=== PATIENT | female | born 1975 | race Caucasian/White ===

== ENCOUNTER 2017-06-25 12:04 | Observation (INO) | payer OTHER, SELFPAY ==
--- NOTE | 2017-06-19 11:44 | EKG12_ITS ---
Test Reason : PREOP Blood Pressure : / mmHG Vent. Rate : 074 BPM Atrial Rate : 074 BPM P-R Int : 154 ms QRS Dur : 088 ms QT Int : 396 ms P-R-T Axes : 039 -02 019 degrees QTc Int : 439 ms Normal sinus rhythm Normal ECG Confirmed by SHARI LEE, DAWN ([id number]), news editor GONZALO JOHN ([id number]) on 06/20/2017 2:02:20 PM Referred By: KD Confirmed By:DAWN MCCARTHY MD
[2017-06-19 12:42] LABS: Hematocrit 39.8 % (37-47); Hemoglobin 13.1 g/dl (12.0-15.0); Mean Corp Hgb Conc 32.9 g/gl (32-36); Mean Corpuscular Volume 97.1 fL (81-99); Mean Platelet Vol. 10.2 fl (6.2-12.0); Platelet Count 217 K/mm3 (150-450); RBC Distribution Width SD 45.1 fl (35.1-43.9); White Blood Count 6.3 K/mm3 (4.4-11.0)
[2017-06-19 12:44] LABS: Scan Indicated on CBC? Y/N NO
[2017-06-19 13:34] LABS: Anion Gap 11 (5-15); BUN 17 mg/dL (7-18); BUN/Creat Ratio 24.4 RATIO (10-20); Calcium,Total 8.9 mg/dL (8.5-10.1); Chloride 106 mmol/L (98-107); EST Glomerular Filtration Rate 99 mL/min (>60); Est Glom Filt Rate - Afr Amer 120 mL/min (>60); Glucose 85 mg/dL (74-106); Potassium 3.8 mmol/L (3.5-5.1); Sodium Level 142 mmol/L (136-145)
[2017-06-25] VITALS (12 sets, daily range): BP systolic 127–145; BP diastolic 68–90; PULSE 68–83; RESP 16–18; TEMP 36.3–37.1; O2SAT 96–100; BMI 46.9
--- NOTE | 2017-06-25 | THYROID_PTH ---
PATIENT: FELECIA WHITMAN LOC: MS2 U#:[id number] AGE/SX: 41/F [place] [facility] [place] RE[place]/25/[address]: Dr. Rajeev Hays MD : 1975 BED: 1 DIS: 06/26/2017 SPEC #: [id number] RECD: 06/25/17 13:44 STATUS: SHANNON JAIME #: [id number] CELY: 06/25/17 00:[address]: Rajeev Hays DEPT: SURGICAL PATHOLOGY RECD BY: Pardeep Portillo ENTERED: 06/25/17 13:44 SP TYPE: THYROID OTHR DR: No Primary Care Phys Tissues: Thyroid gland, NOS Procedures: Surgery Specimen Level V HEADER OPERATION: Thyroidectomy PRE-OP DIAGNOSIS: Multinodular goiter TISSUE SUBMITTED: Thyroid ? stitch in right lobe MICROSCOPIC DIAGNOSIS Thyroid, total thyroidectomy: Follicular adenoma, right lobe (6 cm in greatest dimension). 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 Multinodular goiter. Chronic lymphocytic thyroiditis. THYROID CANCER SUMMARY: Procedure ? total thyroidectomy Received - in formalin Specimen integrity ? disrupted, separate right lobe, left lobe and minute pieces of soft tissue. Specimen size ? right lobe 7 x 6.5 x 4 cm and left lobe 7 x 4.5 x 3 cm Specimen weight ? 103.6 gm Tumor focality ? unifocal Tumor laterality ? left lobe Tumor size ? 0.2 x 0.2 cm Histologic type ? papillary thyroid carcinoma. Variant - microcarcinoma Architecture - follicular Cytomorphology - classical Margins ? margins uninvolved by carcinoma. The tumor is 0.1 cm away from the closest posterior margin. Tumor capsule ? none identified (focal fibrosis is noted within the tumor) Tumor capsular invasion ? not applicable Lymph-Vascular invasion ? not identified Perineural invasion ? not identified Extrathyroidal extension ? not identified Regional lymph nodes ? no nodes submitted or found. Distant metastasis ? not applicable Additional pathologic findings ? follicular adenoma. - Chronic lymphocytic thyroiditis. - Multinodular goiter. Ancillary studies ? See [id number] PATHOLOGIC STAGE: pT1 pNx Mx The above summary is in compliance with [employer] (CAP) Cancer Protocols Checklist and [place] [employer] Committee on Cancer (AJCC), Staging Manual, 8th Ed. SJ:cecille 06/30/17 COMMENT Please make reference to previous specimen ([id number]) thyroid, right, fine needle aspiration with diagnosis of follicular lesion, favor cystic colloid nodule and thyroid, left, fine needle aspiration with diagnosis of follicular lesion, favor colloid nodule and ([id number]) FNA, right thyroid nodule with diagnosis of consistent with adenomatoid colloid nodule. Immunohistochemistry ([id number]) supports the above diagnosis. Case has been reviewed in consultation with Dr. Queen who concurs with the above diagnosis. IDC:[email or web address] MICROSCOPIC DESCRIPTION Slides are reviewed. GROSS DESCRIPTION Received in fixative is one container labeled with the patient's name and designated thyroid. The specimen consists of a total thyroidectomy specimen consisting of separate right lobe identified by a suture, separate left lobe and detached pieces of soft tissue. The entire specimen weighs 103.6 gm. The right lobe measures 7 x 6.5 x 4 cm and the left lobe measures 7 x 4.5 x 3 cm. Also received are a few smaller pieces of soft tissue measuring in aggregate 2.5 x 2 x 0.3 cm. No external parathyroid tissue is identified. Both lobes are markedly distorted. The external surface is inked as follows: right lobe anterior surface ? blue, posterior surface ? black, left lobe anterior surface ? green and posterior surface ? black. Sections of the right lobe reveal a large cam solid nodule occupying 90% of the lobe measuring 6 x 5 x 4 cm. A focal area of hemorrhage is also noted. Sections of the left lobe do not reveal any well defined mass lesion. A Class Lineman sections are submitted in 12 cassettes as follows: 1 ? detached smaller fragments of tissue, entirely submitted, 2-7 ? right lobe, 8-12 ? left lobe. / SJ:rg 06/26/17 More sections are submitted as follows: 13-16 ? left lobe, 17-22 ? right lobe nodule with surrounding capsular tissue. / SJ:cecille 06/27/17 TC:0 CPT: 28812
--- NOTE | 2017-06-25 | IMM_PTH ---
PATIENT: FELECIA WHITMAN LOC: MS2 U#:[id number] AGE/SX: 41/F [place] [facility] [id number] RE06/25/[address]: Dr. Rajeev Hays MD : 1975 BED: 1 DIS: 06/26/2017 SPEC #: [id number] RECD: 06/30/17 11:49 STATUS: SHANNON REQ #: [id number] CELY: 06/25/17 00:[address]: Rajeev Hays DEPT: IMMUNOHISTOCHEMISTRY RECD BY: Mirtha Salazar ENTERED: 06/30/17 11:51 SP TYPE: IMMUNO OTHR DR: No Primary Care Phys Tissues: Thyroid gland, NOS Procedures: CK19 (initial) CD56 (add) CK19 (add) GAL-3 (add) HBME (add) TTF1 (add) PHYSICIAN & INSTITUTION [place] [id number] SPECIMEN INFORMATION: Tissue Source: Thyroid Clinical Info: Multinodular goiter Specimen Number: [id number] block 4 & 9 CPT code: 62577, 00123 x9 METHODOLOGY: Deparaffinized sections of prefer/formalin-fixed tissue or PAP/DQ stained slides are incubated with monoclonal/polyclonal antibodies/oligonucleotide probes. Localization is made via biotin free immunoperoxidase method. Appropriate controls are performed and reacted as expected. Results on target cell population are indicated in the following table: RESULTS: ANTIBODY / CLONE RESULT Block 4 CK19 (A53-B/A2.26) negative HBME1 (HBME-1) negative GAL3 (9C4) negative CD56 (123C3.D5) positive, focal TTF-1 (8G7G3/1) positive Block 9 CK19 (A53-B/A2.26) positive HBME1 (HBME-1) positive GAL3 (9C4) positive CD56 (123C3.D5) negative TTF-1 (8G7G3/1) positive These tests were developed and their performance characteristics determined by [facility]. They may not have been cleared or approved by the U.S. Food and Drug Administration. The FDA has determined that such clearance or approval is not necessary. INTERPRETATION: Thyroid, thyroidectomy: Follicular adenoma (block #4) Papillary thyroid microcarcinoma (block #9). SJ:cecille 07/01/17
[2017-06-25 06:05] LABS: Internal QC Validated? YES +Cl - CLEAR BKGD; Pregnancy, Urine Negative Negative
--- NOTE | 2017-06-25 07:24 | PCM.DC.GS ---
<Rajeev Hays - Last Filed: 06/25/17 07:24> Discharge Diet: Light diet - advance as tolerated - if you have questions about your diet instructions, please talk to you doctor. Discharge Activity: May Not Drive - for 1 week or while taking narcotic pain medicine., May Shower May shower in (days): 1 Lifting Restrictions: 10 pounds Call your doctor if your incision/area has: Continuous Slow Oozing, Sudden Increased Bleeding, Increased Pain/ Swelling, Increased Redness, Foul Smelling Discharge Call your doctor if you observe: Fever of 101 or Higher Suture Line Care: Avoid Pulling/Pushing, Avoid Pinching/Bending Additional Dressing/Incision Instructions:: You may apply a dressing to protect the incision from clothing rubbing, otherwise you may leave it open. Allergies/Adverse Reactions: Allergies No Known Allergies Allergy (Verified 06/18/17 13:16) Medications to take at Discharge Vits [Prenatabs FA ] 1 tab PO DAILY 10/18/15 Hydrocodone Bitart/Apap 5-325 [Mcdonough 5MG-325MG] 1 tablet PO Q6H PRN PRN 4 Days #10 tablet 06/25/17 Levothyroxine Sodium [Synthroid] 150 mcg PO DAILY #90 tab 06/25/17 The following prescriptions were given: Hydrocodone Bitart/Apap 5-325 [Mcdonough 5MG-325MG] 1 tablet PO Q6H PRN PRN 4 Days #10 tablet PRN Reason: Pain Levothyroxine Sodium [Synthroid] 150 mcg PO DAILY #90 tab Primary Care Physician: Care Physician,No Primary [Primary Care Provider] - Please Follow Up With: Rajeev Hays MD - [phone] When: Call to make an appointment to be seen in about 10 days. <Georgiana Pepper - Last Filed: 06/26/17 07:40> Additional Instructions: Your calcium level was 8.3 at discharge, which is slightly low. We will prescribe Rocaltrol BID, Citrical TID, and Vit D 5,000 U QD for 14 days. Our office will recheck a calcium level the day of your follow-up appointment. Proposed Discharge Date: 06/26/17
[2017-06-25] MEDS: Bupivacaine 0.25% 30 ML Vial (10:15)
--- NOTE | 2017-06-25 10:33 | PCM.OPRPT ---
Problem List (1) Multinodular goiter Status: Acute Report of Operation Date of Procedure: 06/25/17 Pre-Operative Diagnosis: Symptomatic multinodular goiter Post-Operative Diagnosis: Same Surgery/Procedure Performed:: Total thyroidectomy Description of Surgical Findings:: Timeout and informed consent was obtained. 41-year-old female was taken during room. She underwent general endotracheal intubation anesthesia. Shoulder roll was placed. She was supine on the table. The neck was sterilely prepped and draped. A transverse curvilinear suprasternal incision was created. Sharp dissection carried down through the substance tissue. The platysma was incised and platysmal flaps are raised. Strap muscles were incised vertically. Strap muscles needed to be transected horizontally allow for exposure to the very significant size the gland. Incision had to be lengthened slightly on the right. Sharp and blunt dissection was used to identify the gland was tediously dissected free the right lobe was addressed first the inferior thyroidal vessels identified secured with hemoclips and Harmonic scalpel. In the superior pole of the right lobe was identified the superior parathyroid on the right was felt to have been identified and preserved. The course of the recurrent ventral nerve was identified as the gland was rotated anteriorly. Dissection was then performed directly upon the posterior aspect of the gland. Large cystic area decompressed assisting with visualization. Dissection was performed to the ligament of Morales. This was dissected free from the trachea. Good release was felt to been achieved. Gland was then rotated off the anterior surface of the trachea. Harmonic Scalpel dissection was used with blunt dissection to accomplish this. It is of note that the right gland was markedly enlarged and this was a very tedious dissection. Now the left lobe was addressed. It was not nearly as large as the right. The inferior parathyroid was identified. The superior parathyroid was identified both were preserved. The course of the recurrent laryngeal nerve was easily identified. A superior and inferior poles were secured with harmonic scalpel hemoclips the gland was rotated anteriorly dissection performed directly upon the posterior aspect ligament of Morales was transected using harmonic scalpel and the gland was dissected off the anterior surface of the trachea. The neck was irrigated with saline. Final hemostasis on the right was achieved with interrupted 3-0 Vicryl. That all major structures were intact. Strap muscles were approximated horizontally with interrupted [id number] 3-0 Vicryl. Strap muscles were then approximated midline with simple sutures of 3-0 Vicryl. The proximal the platysma was approximated up to 3-0 Vicryl. Subcu tissues were approximated with interrupted 3-0 Vicryl and then the edges were finally approximated with interrupted 5-0 Vicryl subdermal stitches. The crystal-incisional areas anesthetized with 10 cc of 0.25% Marcaine. Dermabond was applied followed by Telfa and tape dressings. Sponge instrument and needle counts were reported to surgeon for correct. Specimens total thyroid. Drains none. Blood loss cc. Rajeev Hays M.D., F.A.C.S. Type of Anesthesia:: General Anesthesiologist: Shaw Benavides
--- NOTE | 2017-06-25 10:40 | OP.PCM_ITS ---
Problem List (1) Multinodular goiter Status: Acute Report of Operation Date of Procedure: 06/25/17 Pre-Operative Diagnosis: Symptomatic multinodular goiter Post-Operative Diagnosis: Same Surgery/Procedure Performed:: Total thyroidectomy Description of Surgical Findings:: Timeout and informed consent was obtained. 41-year-old female was taken during room. She underwent general endotracheal intubation anesthesia. Shoulder roll was placed. She was supine on the table. The neck was sterilely prepped and draped. A transverse curvilinear suprasternal incision was created. Sharp dissection carried down through the substance tissue. The platysma was incised and platysmal flaps are raised. Strap muscles were incised vertically. Strap muscles needed to be transected horizontally allow for exposure to the very significant size the gland. Incision had to be lengthened slightly on the right. Sharp and blunt dissection was used to identify the gland was tediously dissected free the right lobe was addressed first the inferior thyroidal vessels identified secured with hemoclips and Harmonic scalpel. In the superior pole of the right lobe was identified the superior parathyroid on the right was felt to have been identified and preserved. The course of the recurrent ventral nerve was identified as the gland was rotated anteriorly. Dissection was then performed directly upon the posterior aspect of the gland. Large cystic area decompressed assisting with visualization. Dissection was performed to the ligament of Morales. This was dissected free from the trachea. Good release was felt to been achieved. Gland was then rotated off the anterior surface of the trachea. Harmonic Scalpel dissection was used with blunt dissection to accomplish this. It is of note that the right gland was markedly enlarged and this was a very tedious dissection. Now the left lobe was addressed. It was not nearly as large as the right. The inferior parathyroid was identified. The superior parathyroid was identified both were preserved. The course of the recurrent laryngeal nerve was easily identified. A superior and inferior poles were secured with harmonic scalpel hemoclips the gland was rotated anteriorly dissection performed directly upon the posterior aspect ligament of Morales was transected using harmonic scalpel and the gland was dissected off the anterior surface of the trachea. The neck was irrigated with saline. Final hemostasis on the right was achieved with interrupted 3-0 Vicryl. That all major structures were intact. Strap muscles were approximated horizontally with interrupted [id number] 3-0 Vicryl. Strap muscles were then approximated midline with simple sutures of 3- 0 Vicryl. The proximal the platysma was approximated up to 3-0 Vicryl. Subcu tissues were approximated with interrupted 3-0 Vicryl and then the edges were finally approximated with interrupted 5-0 Vicryl subdermal stitches. The crystal- incisional areas anesthetized with 10 cc of 0.25% Marcaine. Dermabond was applied followed by Telfa and tape dressings. Sponge instrument and needle counts were reported to surgeon for correct. Specimens total thyroid. Drains none. Blood loss cc. Rajeev Hays M.D., F.A.C.S. Type of Anesthesia:: General Anesthesiologist: Shaw Benavides
[2017-06-25] MEDS: Lactated Ringers 1,000 ML 30 ML IV (12:00)
[2017-06-25] MEDS: Calcium Carbonate 500 MG Tablet 1000 MG PO ×2 (13:11→18:08)
[2017-06-25] MEDS: Ondansetron 4 MG/2 ML Vial IV (14:23)
[2017-06-25] MEDS: 0.9% NaCl Peripheral Flush Adult/Peds IV (14:24)
[2017-06-25] MEDS: Acetaminophen/Codeine #3 Tablet PO ×2 (14:25→20:52)
[2017-06-25 17:09] LABS: Calcium,Total 8.5 mg/dL (8.5-10.1)
--- NOTE | 2017-06-25 17:34 | PCM.PN.SRG ---
Patient Problems: Active and Suspected Problems (Last Reviewed 06/03/17 @ 13:43 by Jessica Neal) Multinodular goiter (Acute) Subjective: Pt notes sore posterior neck - Physical Exam HEENT: - - supple, no anterior swelling, min posterior tenderness, clean incision Vital Signs Temp Pulse Resp BP Pulse Ox 98.2 F 70 18 134/70 H 98 06/25/17 16:35 06/25/17 16:35 06/25/17 16:35 06/25/17 16:35 06/25/17 16:35 Oxygen Flow Rate 2 Oxygen Delivery Method Room Air Weight: 256 lb 6.362 oz Body Mass Index (BMI) 46.9 Intake and Output for Last 24 Hours 06/23/17 06/24/17 06/25/17 23:59 23:59 23:59 Intake Total 1000 / 1000 Balance 1000 / 1000 Laboratory Tests Past 24 Hrs 06/25/17 06/25/17 05:50 16:14 Calcium 8.5 Urine Test Negative Assessment/Plan Active and Suspected Problems (Last Reviewed 06/03/17 @ 13:43 by Jessica Neal) Multinodular goiter (Acute) Good progress Ca 8.5 Continue care Will give rocaltrol tonight
[2017-06-25] MEDS: Calcitriol 0.25 MCG Capsule PO (18:08)
[2017-06-26 03:34] VITALS: BP 134/71; PULSE 67; RESP 18; TEMP 36.9; O2SAT 99
[2017-06-26] MEDS: Acetaminophen/Codeine #3 Tablet PO (05:01)
[2017-06-26] MEDS: Levothyroxine 150 MCG Tablet PO (05:02)
--- NOTE | 2017-06-26 06:50 | PN.SURG_ITS ---
Patient Problems: Active and Suspected Problems (Last Reviewed 06/03/17 @ 13:43 by Jessica Neal) Multinodular goiter (Acute) Subjective: Patient evaluated this morning resting comfortably in bed. She denies nausea, vomiting, fever. She notes posterior neck discomfort. She denies incisional discomfort. - Physical Exam General: Alert, Oriented x3, Cooperative Neck: Supple, No JVD, Negative Carotid Bruits, - - Anterior neck incision- c/d/ i. No erythema or infection noted. No swelling noted Vital Signs Temp Pulse Resp BP Pulse Ox 98.5 F 67 18 134/71 H 99 06/26/17 03:34 06/26/17 03:34 06/26/17 03:34 06/26/17 03:34 06/26/17 03:34 Oxygen Flow Rate 2 Oxygen Delivery Method Room Air Weight: 256 lb 6.362 oz Body Mass Index (BMI) 46.9 Intake and Output for Last 24 Hours 06/24/17 06/25/17 06/26/17 23:59 23:59 23:59 Intake Total 1979 / 1979 1209 / 1209 Output Total 800 / 800 1250 / 1250 Balance 1180 / 1180 -41 / -41 Laboratory Tests Past 24 Hrs 06/25/17 06/26/17 16:14 06:20 Calcium 8.5 Pending Assessment/Plan Active and Suspected Problems (Last Reviewed 06/03/17 @ 13:43 by Jessica Neal) Multinodular goiter (Acute) I am following this patient in conjunction with Dr. Hays. S/p Total thyroidectomy Calcium level pending Ready for discharge today
[2017-06-26 07:06] LABS: Calcium,Total 8.3 mg/dL (8.5-10.1)
[2017-06-26] MEDS: Calcium Carbonate 500 MG Tablet 1000 MG PO (07:51)
[2017-06-26] MEDS: Calcitriol 0.25 MCG Capsule PO (10:19)
[2017-06-26 10:27] VITALS: BP 124/67; PULSE 74; RESP 18; TEMP 36.9; O2SAT 98
== END 2017-06-26 10:21 | disposition home or self-care (01) ==
LOC: SDC 12:50
PROVIDERS: Anesthesiology; Admitting Provider Surgery; Visit Provider Surgery
PROC: (CPT 60240; principal; 2017-06-25 07:00)
DX: D34 Benign neoplasm of thyroid gland (principal); E06.3 Autoimmune thyroiditis; E04.2 Nontoxic multinodular goiter
CPT/HCPCS: 60240; 36415; 80048; 81025; 82310; 85027; 88307; 88341; 88342; 93005; 96374; 99218; J7120; A4216; G0378; G0379; J2405

== ENCOUNTER → 2017-07-07 10:49 | Outpatient (CLI) | payer OTHER, SELFPAY ==
[2017-07-07 12:25] LABS: Calcium,Total 9.8 mg/dL (8.5-10.1)
== END ==
PROVIDERS: Visit Provider Physician Assistant
DX: E83.51 Hypocalcemia (principal)
CPT/HCPCS: 36415; 82310

== ENCOUNTER → 2017-09-04 12:28 | Outpatient (CLI) | payer OTHER, SELFPAY ==
[2017-09-04 13:03] LABS: Free T3 2.3 pg/mL (2.18-3.98)
[2017-09-14 09:24] LABS: Anti-Thyroglobulin AB 1.7 IU/mL (0.0-0.9); Thyroglobulin RIA < 2.0 ng/mL (.); Thyroid Peroxidase AB 60 IU/mL (0-34)
== END ==
PROVIDERS: Visit Provider Internal Medicine Endocrinology, Diabetes & Metabolism
DX: C73 Malignant neoplasm of thyroid gland (principal); E89.0 Postprocedural hypothyroidism
CPT/HCPCS: 84432; 84481; 86376; 86800

== ENCOUNTER → 2018-06-04 12:09 | Outpatient (CLI) | payer OTHER, SELFPAY ==
[2018-06-05 14:07] LABS: Thyroid Peroxidase AB 19 IU/mL (0-34)
[2018-06-05 14:35] LABS: Thyroglobulin Antibody 1.2 IU/mL (0.0-0.9)
[2018-06-12 11:14] LABS: Thyroglobulin RIA < 2.0 ng/mL (.); Thyroid Peroxidase AB 23 IU/mL (0-34)
== END ==
PROVIDERS: Visit Provider Internal Medicine Endocrinology, Diabetes & Metabolism
DX: E03.9 Hypothyroidism, unspecified (principal)
CPT/HCPCS: 84432; 86376; 86800

== ENCOUNTER → 2018-07-20 12:56 | Outpatient (CLI) | payer OTHER, SELFPAY ==
--- NOTE | 2018-07-20 12:59 | BI_ITS ---
MAMMOGRAPHY - BILATERAL SCREENING REASON FOR EXAM: Female, 43 years old. Routine annual screening examination. PERTINENT HISTORY: Aunt with breast cancer. Remote history of right breast discharge and resection of the right ducts. TECHNIQUE: Digital bilateral breast eddi (3D mammographic acquisition) in the CC and MLO projections. 2-D mediolateral oblique (MLO) and craniocaudad (CC) views of both breasts were obtained. CAD: Full Field Digital Mammography with Computer Added Detection was performed. COMPARISON: No comparison mammograms available at this time. If any prior films become available, an addendum to this report can be generated. FINDINGS: Breast Composition: There are scattered areas of fibroglandular density. There are no dominant masses or suspicious calcifications. No other significant abnormalities are identified. BI/SCREEN MAMM (CAD) W/EDDI BILAT IMPRESSION: Negative screening mammogram. Yearly followup mammogram recommended. (A) ASSESSMENT CATEGORY: BIRADS Category 1: Negative. A letter regarding these results will be sent to the patient by the facility within 30 days. Approximately 10% of breast cancers are not detected by mammography. A normal mammogram should not delay biopsy of a clinically suspicious abnormality. [id number] Electronically Signed: Kaiser Valiente, at 15:49 EDT , Service support ,
== END ==
PROVIDERS: Visit Provider Obstetrics & Gynecology
DX: Z12.31 Encounter for screening mammogram for malignant neoplasm of breast (principal)
CPT/HCPCS: 77063; 77067

== ENCOUNTER → 2019-04-30 10:42 | Outpatient (CLI) | payer OTHER, SELFPAY ==
[2018-07-15 11:44] VITALS: BMI 45.7
[2019-05-03 15:07] LABS: Thyroglobulin Antibody 1.1 IU/mL (0.0-0.9); Thyroid Peroxidase AB 18 IU/mL (0-34)
== END ==
PROVIDERS: Referring Provider Internal Medicine Endocrinology, Diabetes & Metabolism; Visit Provider Internal Medicine Endocrinology, Diabetes & Metabolism
DX: C73 Malignant neoplasm of thyroid gland (principal)
CPT/HCPCS: 36415; 86376; 86800

== ENCOUNTER → 2020-01-12 16:25 | Outpatient (CLI) | payer OTHER, SELFPAY ==
[2020-01-12 08:59] VITALS: BMI 45.7
[2020-01-17 12:25] LABS: HPV APTIMA, High Risk Negative (Negative)
== END ==
PROVIDERS: Referring Provider Nurse Practitioner Women's Health; Visit Provider Nurse Practitioner Women's Health
DX: Z12.4 Encounter for screening for malignant neoplasm of cervix (principal)
CPT/HCPCS: 87624; 88175; G0145

== ENCOUNTER 2023-07-17 07:23 | Inpatient (IN) | payer OTHER, SELFPAY ==
[2023-07-17 07:23] VITALS: BP 150/88; PULSE 107; RESP 18; TEMP 36.8; O2SAT 96; BMI 52.4
--- NOTE | 2023-07-17 07:50 | US_ITS ---
HISTORY: RUQ pain. TECHNIQUE: Ortega scale and color doppler imaging was performed of the right upper quadrant. 92 images. COMPARISON: None. FINDINGS: LIVER: 16.1 cm in length. Heterogeneous echotexture without focal lesion demonstrated. No intrahepatic ductal dilatation. MAIN PORTAL VEIN: Patent with flow in appropriate direction. COMMON BILE DUCT: 5 mm in diameter. GALLBLADDER: Biliary sludge with a large impacted gallstone in the neck. 9 mm wall thickness with a distended gallbladder. No pericholecystic fluid. Sonographic العراق[place] sign negative. PANCREAS: Not well visualized due to overlying bowel gas. RIGHT KIDNEY: 11.5 cm in length with a cortical thickness of 1.2 cm. No hydronephrosis or gross renal mass demonstrated. US/Gallbladder IMPRESSION: Cholelithiasis and biliary sludge with a large impacted gallstone in the gallbladder neck, moderate gallbladder wall thickening, and gallbladder distention concerning for acute cholecystitis. Heterogeneous liver from hepatic steatosis or other hepatocellular disease. Electronically Signed: Adina Bui MD at 9:23 EST ,
--- NOTE | 2023-07-17 07:50 | EDS_ITS ---
HPI HPI - GI History of Present Illness Chief Complaint: Abd Pain Narrative Narrative: 48-year-old female presenting with right upper quadrant pain. She states that yesterday during lunchtime she started to have epigastric pain which radiates down to the right upper quadrant. She states she had a salad with pepperoni, ham, ranch dressing, cheese. She states that she believes it started hurting during lunch. Patient had constant pain overnight and started to radiate to the right upper quadrant. She states it still painful especially when she moves or take a deep breath. Patient has not vomited. No diarrhea or constipation. No abdominal surgeries. Patient has not eaten anything since yesterday at lunch. Patient states today before bed meatloaf and salad with no symptoms. Patient states he has had the symptoms in the past but it was short-lived. They never radiated to the right upper quadrant before. Patient has been able to tolerate p.o. fluids overnight. PFSH [facility] Medical History Cancer Multinodular goiter Obesity Polycystic disease, ovaries Postoperative hypothyroidism Thyroid cancer Thyroid cancer Home Medications cholecalciferol (vitamin D3) 125 mcg (5,000 unit) capsule 125 mcg PO DAILY 08/05/22 [History Last Taken Unknown] levothyroxine 150 mcg tablet 150 mcg PO .6 days q week #90 tabs 08/05/22 [Rx Last Taken Unknown] multivitamin (Daily Multi-Vitamin tablet) 1 tab PO DAILY 08/05/22 [History Last Taken Unknown] Allergy/AdvReac Type Severity Reaction Status Date / Time amoxicillin [From Augmentin] Allergy Mild Rash Verified 08/05/22 13:38 clavulanic acid Allergy Mild Rash Verified 08/05/22 13:38 [From Augmentin] Family History Unknown Diabetes Grandmother Diabetes Aunt Breast cancer Father CAD (coronary artery disease) Thyroid disorder Other Alcohol abuse Cancer Surgical History duct removal from right breast History of colposcopy S/P thyroidectomy Social History Smoking Status: Never smoker alcohol intake: current alcohol intake frequency: a few times a month substance use type: does not use caffeine: Yes what type of physical activity do you participate in: none seatbelt use: always do you feel safe at home: Yes additional social history: DAVID - deana MULLER ROS ED Constitutional Constitutional ED: Denies chills, fever(s) or sweats Eyes Eyes: Denies blurry vision or change in vision ENT ENT ED: Denies ear pain or sore throat Cardiovascular Cardiovascular: Denies chest pain, palpitations or racing heartbeat Respiratory/Chest Respiratory/Chest: Denies cough, dyspnea or sputum Gastrointestinal Gastrointestinal: Reports abdominal pain; Denies constipation, diarrhea, nausea or vomiting Genitourinary Genitourinary ED: Denies dysuria, hematuria or urinary frequency Musculoskeletal Musculoskeletal: Denies arthralgias, myalgias or neck pain Integumentary Denies abscess, Abrasions or rash Neurologic Neurologic: Denies headache(s), paresthesias or weakness Psychiatric Psychiatric: Denies anxiety, depression, suicidal ideation or suicidal thoughts Endocrine Endocrinology: Denies polydipsia or polyuria EXAM Physical Exam Const Vital Signs: 07/17/23 07:23 Temperature 98.3 F Temperature Source Temporal Pulse Rate 107 H Respiratory Rate 18 Blood Pressure 150/88 H Blood Pressure Mean 108 Pulse Ox 96 Oxygen Delivery Method Room Air Positive well nourished General Appearance ED: NAD; Negative for pallor HEENT Reports moist mucous membranes normocephalic and atraumatic Eyes PERRL General Eye ED: Negative for scleral icterus Resp normal respiratory effort Cardio regular rate and regular rhythm GI Palpation: tender RUQ and العراقي's sign Extremity full ROM Neuro CN's II-XII intact bilaterally and moves all extremities Sensorium / Orientation: alert Motor Exam: strength 5/5 throughout Psych mental status grossly normal and thought process normal Skin no wounds General Skin Exam: Negative for jaundice or pallor MDM MDM MDM Narrative Medical decision making narrative: Patient presenting with abdominal pain. Patient presenting with right flank pain. Differential includes colitis, diverticulitis, gastritis, pancreatitis, acute cholecystitis, constipation, appendicitis, UTI, pyelonephritis, calculi, ureteral calculi, obstruction, malignancy, dehydration, electrolyte abnormalities, . CBC will be obtained to assess white blood cell count, hemoglobin, platelets. BMP to assess renal function, electrolytes. LFTs to assess liver enzymes. Lipase to assess for pancreatitis. Urinalysis to assess for UTI. Right upper quadrant ultrasound will be obtained. Patient medicated with morphine, Zofran. CBC shows leukocytosis of 15.2. Hemoglobin stable at 12.9. Platelets are normal at 203. Renal function and electrolytes unremarkable. Total bilirubin 1.5, direct bilirubin 0.55 AST, ALT, alk phos all within normal limits. Lipase negative. Serum hCG negative. Pulmonary ultrasound was obtained and shows concern for acute cholecystitis. Discussed with Dr. Vaughn who will admit the patient. Patient penicillin allergic and he requested clindamycin. Patient will be admitted in stable condition. Impression: 1. Leukocytosis 2. Acute cholecystitis Lab Data Labs: Laboratory Results - last 24 hr 07/17/23 07:50 WBC 15.2 H RBC 4.09 L Hgb 12.9 Hct 38.4 MCV 93.9 MCH 31.5 MCHC 33.6 RDW Std Deviation 45.1 H RDW Coeff of Rula 13.1 Plt Count 203 MPV 10.3 Immature Gran % (Auto) 0.500 Neut % (Auto) 86.9 H Lymph % (Auto) 5.1 L Randolph % (Auto) 7.2 Eos % (Auto) 0.2 Baso % (Auto) 0.1 Absolute Neuts (auto) 13.2 H Absolute Lymphs (auto) 0.77 L Nucleated RBC % 0 Sodium 141 Potassium 3.5 Chloride 107 Carbon Dioxide 24.0 Anion Gap 10 BUN 10 Creatinine 0.75 Estim Creat Clear Calc 121.42 Est GFR (MDRD) Af Amer 108 Est GFR (MDRD) Non-Af 89 BUN/Creatinine Ratio 13.4 Glucose 120 H Calcium 8.9 Total Bilirubin 1.50 H Direct Bilirubin 0.55 H AST 19 ALT 26 Alkaline Phosphatase 80 Total Protein 7.4 Albumin 3.4 Globulin 4.0 Lipase 12 L Serum , Qual NEGATIVE Radiography Diagnostic Testing: Clinical Impression(s) from Imaging Studies Gallbladder Ultrasound 07/17/23 07:50 IMPRESSION: Cholelithiasis and biliary sludge with a large impacted gallstone in the gallbladder neck, moderate gallbladder wall thickening, and gallbladder distention concerning for acute cholecystitis. Heterogeneous liver from hepatic steatosis or other hepatocellular disease. Electronically Signed: Adina Bui MD at 9:23 EST , Discharge Plan Triage Chief Complaint: Abd Pain ED Provider: Ron Arredondo Dx/Rx/DC Orders Prescriptions: No Action multivitamin [Daily Multi-Vitamin] Tablet 1 tab PO DAILY cholecalciferol (vitamin D3) 125 mcg (5,000 unit) capsule 125 mcg PO DAILY levothyroxine 150 mcg tablet 150 mcg PO .6 days q week Qty: 90 3RF Primary Care Provider: Care Physician,No Primary Referrals: Care Physician,No Primary [Primary Care Provider] -
[2023-07-17] MEDS: Ondansetron 4 MG/2 ML Vial IV ×2 (07:57→13:21)
[2023-07-17] MEDS: Morphine 4 MG/ML Syringe IV (07:58)
[2023-07-17 08:07] LABS: Absolute Lymphocyte Count 0.77 X10^3/uL (0.83-4.51); Absolute Neutrophil Count 13.2 X10^3/uL (2.0-7.7); Basophil# 0.02 X10^3/uL; Basophil% 0.1 % (0-1); Eosinophil# 0.03 X10^3/uL; Eosinophils% 0.2 % (0-5); Hematocrit 38.4 % (37-47); Hemoglobin 12.9 g/dL (12.0-15.0); Lymphocyte # 0.77 X10^3/ul (0.83-4.51); Lymphocyte % 5.1 % (19-41); Mean Corp Hgb Conc 33.6 g/dL (32-36); Mean Corpuscular Hgb 31.5 pg (27.0-32.0); Mean Corpuscular Volume 93.9 fL (81-99); Mean Platelet Vol. 10.3 fl (6.2-12.0); Monocyte% 7.2 % (0-10); NRBC Flagged by Analyzer 0 % (0-5); Neutrophil # 13.22 X10^3/uL (2.7-7.7); Neutrophil % 86.9 % (47-70); Platelet Count 203 K/mm3 (150-450); RBC Distribution Width CV 13.1 % (11.6-14.6); RBC Distribution Width SD 45.1 fl (35.1-43.9); Red Blood Count 4.09 M/mm3 (4.2-5.4); White Blood Count 15.2 K/mm3 (4.4-11.0)
[2023-07-17 08:18] LABS: Internal QC Validated? YES +Cl - CLEAR BKGD; Pregnancy, Serum, hCG Quali. NEGATIVE Negative; Record Kit Lot#, Serum Preg. HCG0000718086
--- OUTSIDE RECORDS SUMMARY | 2023-07-17 08:18 | XMS RPT_ITS | CCD ---
Author Name Unknown Address [address] [facility] [address] [place] [address] Organization [facility] Care Team Providers Care Customer Strategy Manager Name Role Phone Emelina Fleming MD Unavailable [phone] Olive GOODSON, Cathy Santos Unavailable RAMÍREZ Larios RN, Kandice Espinosa Unavailable Chepe Larios RN RN, Kandice Espinosa Unavailable Chepe Larios RN RN, Kandice Espinosa Unavailable Chepe Odom NP, Eva Flores Unavailable [phone] Judith Yuan LPN Unavailable Unavailable Catherine Peters Unavailable EMELINA FLEMING Unavailable Unavailable CHARLIE COMER Unavailable Unavailable ELEANOR TERAN (COMMERCIAL CREDIT HEAD) Unavailable Unavaearle Larios RN RN, Kandice A Unavailable Unavailarturo Larios RN RN, Kandice A Unavailable UnavailCatherine Ashford Unavailable Catherine Peters Unavailable Eva Odom NP Unavailable Judith Yuan LPN Unavailable Unavailable Emelina Fleming MD Unavailable [phone] RAMÍREZ Larios RN, Kandice Espinosa Unavailable Chepe cavanaugh Medications Completed/Discontinued Medications Medication Drug Class(es) Dates Sig (Normalized) Sig (Original) metroNIDAZOLE 500 mg oral tablet (17 sources) Nitroimidazole Antimicrobial Start: 02-24-2017 take 1 tablet by mouth twice daily FLAGYL 500 MG TABS One tablet by mouth twice daily METRONIDAZOLE [id number] Emelina Fleming MD Drug Treatment Unknown - unknown (5 sources) No information available. VIT-FE FUMARATE-FA (12 sources) Start: 12-06-2016 take 1 tablet by mouth once daily VITAMINS 28-0.8 MG TABS One tablet by mouth daily VIT-FE FUMARATE-FA [id number] Emelina Fleming MD Problems Active Problems Problem Classification Problem Date Documented Date Episodic/Chronic Other nutritional; endocrine; and metabolic disorders (20 sources) Body mass index (BMI) 45.0-49.9, adult; Translations: [Overweight] Onset: 08-28-2016 08-28-2016 Chronic Other nutritional; endocrine; and metabolic disorders (15 sources) Overweight; Translations: [Overweight] Onset: 08-28-2016 08-28-2016 Chronic Residual codes; unclassified (20 sources) 34 weeks gestation of ; Translations: [37 weeks gestation of ] Onset: 12-06-2016 02-07-2017 Thyroid disorders (20 sources) Hyperthyroidism; Translations: [Thyrotoxicosis, unspecified without thyrotoxic crisis or storm] Onset: 08-28-2016 08-28-2016 Chronic Unclassified (18 sources) 37 weeks gestation of ; Translations: [21 weeks gestation of ] Onset: 11-08-2016 02-21-2017 Unclassified (17 sources) Contraception care management; Translations: [Encounter for contraceptive management, unspecified] Onset: 02-21-2017 02-21-2017 Past or Other Problems Problem Classification Problem Date Documented Date Episodic/Chronic Contraceptive and procreative management (1 source) Encounter for contraceptive management, unspecified; Translations: [Encounter for contraceptive management, unspecified] Onset: 02-21-2017 02-21-2017 Episodic Immunizations and screening for infectious disease (20 sources) Carrier of Group B streptococcus; Translations: [Carrier of Group B streptococcus] Onset: 02-24-2017 Resolved: 03-28-2017 03-28-2017 Episodic Other complications of (20 sources) Rhesus isoimmunization with problem; Translations: [High risk ] Onset: 08-28-2016 12-06-2016 Episodic Other complications of (20 sources) High risk ; Translations: [Supervision of other high risk pregnancies, unspecified trimester] Onset: 08-28-2016 01-03-2017 Episodic Other and delivery including normal (20 sources) Gestation period, 30 weeks; Translations: [Gestation period, 25 weeks] Onset: 12-06-2016 01-08-2017 Episodic Other screening for suspected conditions (not mental disorders or infectious disease) (20 sources) Abnormal cervical Papanicolaou smear; Translations: [Unspecified abnormal cytological findings in specimens from cervix uteri] Onset: 12-06-2016 12-06-2016 Episodic Prolonged (7 sources) Post-term ; Translations: [Post-term ] Onset: 03-21-2017 03-21-2017 Episodic Thyroid disorders (20 sources) Disorder of thyroid gland; Translations: [Disorder of thyroid, unspecified] Onset: 11-21-2016 Resolved: 12-06-2016 11-21-2016 Episodic Results Test Name Value Interpretation Reference Range Facil ity Vital Signs Date Time Vital Sign Value Performing Clinician Facility 03-27-2017 08:30-0500 BMI (Body Mass Index) 49.1 kg/m2 Cathy Schaefer NP [facility] 03-27-2017 08:30-0500 BP Diastolic 80 mm[Hg] Cathy Schaefer NP [facility] 03-27-2017 08:30-0500 BP Systolic 126 mm[Hg] Cathy Schaefer NP [facility] 03-27-2017 08:30-0500 Weight 125.74 kg Cathy Schaefer NP [facility] 03-24-2017 13:18-0500 BMI (Body Mass Index) 48.92 kg/m2 Emelina Fleming MD [facility] 03-24-2017 13:18-0500 BP Diastolic 79 mm[Hg] Emelina Fleming MD [facility] 03-24-2017 13:18-0500 BP Systolic 119 mm[Hg] Emelina Fleming MD [facility] 03-24-2017 13:18-0500 Weight 125.28 kg Emelina Fleming MD [facility] 03-21-2017 14:36-0500 BMI (Body Mass Index) 49.06 kg/m2 Cathy Schaefer NP [facility] 03-21-2017 14:36-0500 BP Diastolic 73 mm[Hg] Cathy Schaefer NP [facility] 03-21-2017 14:36-0500 BP Systolic 113 mm[Hg] Cathy Schaefer NP [facility] 03-21-2017 14:36-0500 Weight 125.65 kg Cathy Schaefer [facility] 03-19-2017 08:06-0500 BMI (Body Mass Index) 40.24 kg/m2 Emelina Fleming MD [facility] [place] 03-19-2017 08:06-0500 BP Diastolic 79 mm[Hg] Emelina Fleming MD [facility] [place] 03-19-2017 08:06-0500 BP Systolic 124 mm[Hg] Emelina Fleming MD [facility] [place] 03-19-2017 08:06-0500 Respiratory Rate 16 /min Emelina Fleming MD [facility] [place] 03-19-2017 08:06-0500 Weight 103.06 kg Emelina Fleming MD [facility] [place] 03-14-2017 08:17-0400 BMI (Body Mass Index) 49.7 kg/m2 Emelina Fleming MD [facility] [place] 03-14-2017 08:17-0400 Body Temperature 98 [degF] Emelina Fleming MD [facility] [place] 03-14-2017 08:17-0400 BP Diastolic 77 mm[Hg] Emelina Fleming MD [facility] 03-14-2017 08:17-0400 BP Systolic 127 mm[Hg] Emelina Fleming MD [facility] [place] 03-14-2017 08:17-0400 Pulse (Heart Rate) 94 /min Emelina Fleming MD [facility] [place] 03-14-2017 08:17-0400 Respiratory Rate 16 /min Emelina Fleming MD [facility] [place] 03-14-2017 08:17-0400 Weight 127.28 kg Emelina Fleming MD [facility] 02-28-2017 08:11-0400 BMI (Body Mass Index) 48.89 kg/m2 Emelina Fleming MD [facility] [place] 02-28-2017 08:11-0400 Body Temperature 96.8 [degF] Emelina Fleming MD [facility] 02-28-2017 08:11-0400 BP Diastolic 76 mm[Hg] Emelina Fleming MD [facility] [place] 02-28-2017 08:11-0400 BP Systolic 119 mm[Hg] Emelina Fleming MD [facility] 02-28-2017 08:11-0400 Pulse (Heart Rate) 97 /min Emelina Fleming MD [facility] 02-28-2017 08:11-0400 Respiratory Rate 16 /min Emelina Fleming MD [facility] 02-28-2017 08:11-0400 Weight 125.19 kg Emelina Fleming MD [facility] 02-25-2017 07:43-0400 Height 160.02 cm Emelina Fleming MD [facility] 02-21-2017 08:19-0400 BMI (Body Mass Index) 48.64 kg/m2 Emelina Fleming MD [facility] 02-21-2017 08:19-0400 Body Temperature 97.3 [degF] Emelina Fleming MD [facility] 02-21-2017 08:19-0400 BP Diastolic 77 mm[Hg] Emelina Fleming MD [facility] 02-21-2017 08:19-0400 BP Systolic 117 mm[Hg] Emelina Fleming MD [facility] 02-21-2017 08:19-0400 Pulse (Heart Rate) 102 /min Emelina Fleming MD [facility] 02-21-2017 08:19-0400 Respiratory Rate 16 /min Emelina Fleming MD [facility] 02-21-2017 08:19-0400 Weight 124.56 kg Emelina Fleming MD [facility] 02-07-2017 05:14-0400 BMI (Body Mass Index) 49.28 kg/m2 Emelina Fleming MD [facility] 02-07-2017 05:14-0400 BP Diastolic 67 mm[Hg] Emelina Fleming MD [facility] 02-07-2017 05:14-0400 BP Systolic 122 mm[Hg] Emelina Fleming MD [facility] 02-07-2017 05:14-0400 Weight 126.19 kg Emelina Fleming MD [facility] 01-23-2017 08:42-0400 BMI (Body Mass Index) 48.99 kg/m2 Emelina Fleming MD [facility] [place] 01-23-2017 08:42-0400 Body Temperature 97.6 [degF] Emelina Fleming MD [facility] [place] 01-23-2017 08:42-0400 BP Diastolic 71 mm[Hg] Emelina Fleming MD [facility] [place] 01-23-2017 08:42-0400 BP Systolic 116 mm[Hg] Emelina Fleming MD [facility] 01-23-2017 08:42-0400 Pulse (Heart Rate) 94 /min Emelina Fleming MD [facility] [place] 01-23-2017 08:42-0400 Respiratory Rate 16 /min Emelina Fleming MD [facility] 01-23-2017 08:42-0400 Weight 125.47 kg Emeilna Fleming MD [facility] 01-09-2017 08:05-0400 BMI (Body Mass Index) 49.13 kg/m2 Cathy Schaefer NP [facility] 01-09-2017 08:05-0400 Body Temperature 97.8 [degF] Cathy Schaefer FILING MACHINE OPERATOR [facility] 01-09-2017 08:05-0400 BP Diastolic 73 mm[Hg] Cathy Schaefer FILING MACHINE OPERATOR [facility] 01-09-2017 08:05-0400 BP Systolic 115 mm[Hg] Cathy Schaefer FILING MACHINE OPERATOR [facility] 01-09-2017 08:05-0400 Pulse (Heart Rate) 93 /min Cathy Schaefer FILING MACHINE OPERATOR [facility] 01-09-2017 08:05-0400 Respiratory Rate 16 /min Cathy Schaefer FILING MACHINE OPERATOR [facility] 01-09-2017 08:05-0400 Weight 125.83 kg Cathy Schaefer NP [facility] 12-25-2016 07:42-0400 BMI (Body Mass Index) 48.92 kg/m2 Eva Odom NP [facility] Work Phone: 12-25-2016 07:42-0400 Body Temperature 98.2 [degF] Eva Odom NP [facility] Work Phone: 12-25-2016 07:42-0400 BP Diastolic 81 mm[Hg] Eva Odom FILING MACHINE OPERATOR [facility] Work Phone: 12-25-2016 07:42-0400 BP Systolic 132 mm[Hg] Eva Odom FILING MACHINE OPERATOR [facility] Work Phone: 12-25-2016 07:42-0400 Pulse (Heart Rate) 105 /min Eva Odom FILING MACHINE OPERATOR [facility] Work Phone: 12-25-2016 07:42-0400 Respiratory Rate 17 /min Eva Odom FILING MACHINE OPERATOR [facility] Work Phone: 12-25-2016 07:42-0400 Weight 125.28 kg Eva Odom FILING MACHINE OPERATOR [facility] Work Phone: 12-06-2016 09:36-0400 BMI (Body Mass Index) 49.2 kg/m2 Emelina Fleming MD [facility] 12-06-2016 09:36-0400 Body Temperature 99.2 [degF] Emelina Fleming MD [facility] 12-06-2016 09:36-0400 BP Diastolic 74 mm[Hg] Emelina Fleming MD [facility] 12-06-2016 09:36-0400 BP Systolic 108 mm[Hg] Emelina Fleming MD [facility] 12-06-2016 09:36-0400 Pulse (Heart Rate) 91 /min Emelina Fleming MD [facility] 12-06-2016 09:36-0400 Respiratory Rate 16 /min Emelina Fleming MD [facility] 12-06-2016 09:36-0400 Weight 126.01 kg Emelina Fleming MD [facility] 12-03-2016 07:47-0400 BMI (Body Mass Index) 49.1 kg/m2 Judith [facility] Work Phone: 12-03-2016 07:47-0400 Body Temperature 98.2 [degF] Judith [facility] Work Phone: 12-03-2016 07:47-0400 BP Diastolic 68 mm[Hg] Judith Kwabena DEL CASTILLO [facility] Work Phone: 12-03-2016 07:47-0400 BP Systolic 110 mm[Hg] Judith Kwabena [facility] Work Phone: 12-03-2016 07:47-0400 Height 160.02 cm Judith Kwabena DEL [facility] Work Phone: 12-03-2016 07:47-0400 Pulse (Heart Rate) 84 /min Judith Kwabena DEL [place] Work Phone: 12-03-2016 07:47-0400 Respiratory Rate 20 /min Judith Kwabena DEL [place] Work Phone: 12-03-2016 07:47-0400 Weight 125.74 kg Judith Kwabena DEL [facility] Work Phone: 08-28-2016 10:47-0400 BMI (Body Mass Index) 47.68 kg/m2 Eva Lei GOODSON [facility] Work Phone: 08-28-2016 10:47-0400 BP Diastolic 68 mm[Hg] Eva Shogustavo FILING MACHINE OPERATOR [facility] Work Phone: 08-28-2016 10:47-0400 BP Systolic 137 mm[Hg] Eva Shogustavo GOODSON [facility] Work Phone: 08-28-2016 10:47-0400 BSA (Body Surface Area) 2.2 m2 Eva Lei FILING MACHINE OPERATOR [facility] Work Phone: 08-28-2016 10:47-0400 Height 160.02 cm Eva Odom NP [facility] Work Phone: 08-28-2016 10:47-0400 Pulse (Heart Rate) 86 /min Eva Odom NP [facility] Work Phone: 08-28-2016 10:47-0400 Pulse Oximetry 96 % Eva Shook FILING MACHINE OPERATOR [facility] Work Phone: 08-28-2016 10:47-0972 Respiratory Rate 18 /min Eva Lei FILING MACHINE OPERATOR [facility] Work Phone: 08-28-2016 10:47-4122 Weight 122.11 kg Eva Sheikhgustavo FILING MACHINE OPERATOR [facility] Work Phone: Encounters Encounter Date Encounter Type Care Provider Facility Start: 11-19-2016 End: 11-21-2016 Ambulatory [facility]LIE COM[facility] Start: 11-08-2016 End: 06-16-2017 Ambulatory EMELINA FLEMING [facility] Procedures Date Procedure Procedure Detail Performing Clinician Start: 03-27-2017 End: 03-27-2017 nonstress test Cathy Schaefer FILING MACHINE OPERATOR Work Phone: Start: 03-27-2017 End: 03-27-2017 Routine OB Visit (Global) Cathy Casareztin gs FILING MACHINE OPERATOR Work Phone: Start: 03-27-2017 End: 03-27-2017 non-stress test Cathy Jaureguis N P Work Phone: Start: 03-27-2017 End: 03-27-2017 Routine OB Visit (Global) Cathy Casareztin gs FILING MACHINE OPERATOR Work Phone: Start: 03-24-2017 End: 03-25-2017 nonstress test Cathy Jaureguis FILING MACHINE OPERATOR Work Phone: Start: 03-24-2017 End: 03-25-2017 Routine OB Visit (Global) Cathy Casareztin gs FILING MACHINE OPERATOR Work Phone: Start: 03-24-2017 End: 03-25-2017 non-stress test Cathy Jaureguis N P Work Phone: Start: 03-24-2017 End: 03-25-2017 Routine OB Visit (Global) Cathy Casareztin gs FILING MACHINE OPERATOR Work Phone: Start: 03-21-2017 End: 03-21-2017 nonstress test Cathy Jaureguis FILING MACHINE OPERATOR Work Phone: Start: 03-21-2017 End: 03-21-2017 Routine OB Visit (Global) Cathy [facility] FILING MACHINE OPERATOR Work Phone: Start: 03-21-2017 End: 03-21-2017 non-stress test Cathy Schaefer N P Work Phone: Start: 03-21-2017 End: 03-21-2017 Routine OB Visit (Global) Cathy [facility] gs FILING MACHINE OPERATOR Work Phone: Start: 03-19-2017 End: 03-19-2017 Routine OB Visit (Global) Emelina loera MD Work Phone: Start: 03-19-2017 End: 03-19-2017 Routine OB Visit (Global) Emelina loera MD Work Phone: Start: 03-14-2017 End: 03-14-2017 Routine OB Visit (Global) Emelnia loera MD Work Phone: Start: 03-14-2017 End: 03-14-2017 Routine OB Visit (Global) Emelina loera MD Work Phone: Start: 03-06-2017 End: 03-06-2017 Routine OB Visit (Global) Emelina loera MD Work Phone: Start: 03-06-2017 End: 03-06-2017 Routine OB Visit (Global) Emelina loera MD Work Phone: Start: 02-28-2017 End: 02-28-2017 Routine OB Visit (Global) Emelina loera MD Work Phone: Start: 02-28-2017 End: 02-28-2017 Routine OB Visit (Global) Emelina loera MD Work Phone: Start: 02-21-2017 End: 03-28-2017 Bacteria identified in Genital specimen by Aerobe culture Emelina Fleming MD Work Phone: Start: 02-21-2017 End: 02-21-2017 Routine OB Visit (Global) Emelina loera MD Work Phone: Start: 02-21-2017 End: 03-28-2017 Bacteria genital culture Emelina sanchez MD Work Phone: Start: 02-21-2017 End: 02-21-2017 Routine OB Visit (Global) Emelina loera MD Work Phone: Start: 02-07-2017 End: 02-07-2017 Routine OB Visit (Global) Emelina loera MD Work Phone: Start: 02-07-2017 End: 02-07-2017 Routine OB Visit (Global) Emelina loera MD Work Phone: Start: 01-23-2017 End: 01-23-2017 Routine OB Visit (Global) Emelina loera MD Work Phone: Start: 01-23-2017 End: 03-28-2017 Us preg uterus real time f/u trnsabdl per fetus Emelina Fleming MD Work Phone: Start: 01-23-2017 End: 03-28-2017 Ob us, follow-up, per fetus Emelina hull MD Work Phone: Start: 01-23-2017 End: 01-23-2017 Routine OB Visit (Global) Emelina loera MD Work Phone: Start: 01-09-2017 End: 01-09-2017 Routine OB Visit (Global) Cathy young FILING MACHINE OPERATOR Work Phone: Start: 01-09-2017 End: 01-09-2017 Routine OB Visit (Global) Cathy young FILING MACHINE OPERATOR Work Phone: Start: 12-25-2016 End: 12-30-2016 *GESTGTT Gestational GRR 3Hr 100 gm Emelina Fleming MD Work Phone: Start: 12-25-2016 End: 12-25-2016 *RHOGAM Rhogam/RH Immune Globulin/Unit Emelina Fleming MD Work Phone: Start: 12-25-2016 End: 12-25-2016 Antepartum care only 7/> visits Emelina Fleming MD Work Phone: Start: 12-25-2016 End: 12-25-2016 Antibody screen Kandice Larios RN RN Start: 12-25-2016 End: 12-30-2016 *GESTGTT Gestational GRR 3Hr 100 gm Emelina Fleming MD Work Phone: Start: 12-25-2016 End: 12-25-2016 *RHOGAM Rhogam/RH Immune Globulin/Unit Emelina Fleming MD Work Phone: Start: 12-25-2016 End: 12-25-2016 Antepartum care only Emelina rubio MD Work Phone: Start: 12-06-2016 End: 12-25-2016 *CBC with Differential Emelina greene MD Work Phone: Start: 12-06-2016 End: 12-25-2016 *RHOGAM Rhogam/RH Immune Globulin/Unit Emelina Fleming MD Work Phone: Start: 12-06-2016 End: 12-25-2016 *TS Type and Screen Emelina Fleming MD Work Phone: Start: 12-06-2016 End: 12-25-2016 Glucose tolerance 4 hours panel - Serum or Plasma Emelina Fleming MD Work Phone: Start: 12-06-2016 End: 12-06-2016 Routine OB Visit (Global) Emelina loera MD Work Phone: Start: 12-06-2016 End: 12-25-2016 *CBC with Differential Emelina greene MD Work Phone: Start: 12-06-2016 End: 12-25-2016 *RHOGAM Rhogam/RH Immune Globulin/Unit Emelina Fleming MD Work Phone: Start: 12-06-2016 End: 12-25-2016 *TS Type and Screen Emelina Fleming MD Work Phone: Start: 12-06-2016 End: 12-25-2016 Glucose tolerance 4 hours panel - Serum or Plasma Emelina Fleming MD Work Phone: Start: 12-06-2016 End: 12-06-2016 Routine OB Visit (Global) Emelina loera MD Work Phone: Start: 11-21-2016 End: 12-25-2016 Thyrotropin [Units/volume] in Serum or Plasma Eva Odom FILING MACHINE OPERATOR Work Phone: Start: 11-21-2016 End: 12-25-2016 Thyroxine (T4) free [Mass/volume] in Serum or Plasma Eva Odom FILING MACHINE OPERATOR Work Phone: Start: 11-21-2016 End: 12-25-2016 Triiodothyronine (T3) Free [Mass/volume] in Serum or Plasma Eva Odom FILING MACHINE OPERATOR Work Phone: Start: 11-21-2016 End: 12-25-2016 Thyroid stimulating hormone (TSH) Eva Odom FILING MACHINE OPERATOR Work Phone: Start: 11-21-2016 End: 12-25-2016 Thyroxine (T4) free Eva Odom FILING MACHINE OPERATOR Work Phone: Start: 11-21-2016 End: 12-25-2016 Triiodothyronine (T3) free Eva pate FILING MACHINE OPERATOR Work Phone: Start: 08-28-2016 End: 11-13-2016 *MISC - Miscellaneous Lab Test #1 Eva Odom FILING MACHINE OPERATOR Work Phone: Start: 08-28-2016 End: 08-29-2016 Aspartate aminotransferase [Enzymatic activity/volume] in Serum or Plasma Eva Odom FILING MACHINE OPERATOR Work Phone: Start: 08-28-2016 End: 08-29-2016 CBC W Auto Differential panel - Blood Eva Odom FILING MACHINE OPERATOR Work Phone: Start: 08-28-2016 End: 05-30-2017 Thyrotropin [Units/volume] in Serum or Plasma Eva Odom FILING MACHINE OPERATOR Work Phone: Start: 08-28-2016 End: 11-13-2016 Thyroxine (T4) free [Mass/volume] in Serum or Plasma Eva Odom FILING MACHINE OPERATOR Work Phone: Start: 08-28-2016 End: 11-13-2016 Transferase alanine amino alt sgpt Eva Odom FILING MACHINE OPERATOR Work Phone: Start: 08-28-2016 End: 11-13-2016 Triiodothyronine (T3) Free [Mass/volume] in Serum or Plasma Eva Odom FILING MACHINE OPERATOR Work Phone: Start: 08-28-2016 End: 11-13-2016 *MISC - Miscellaneous Lab Test #1 Eva Odom FILING MACHINE OPERATOR Work Phone: Start: 08-28-2016 End: 08-29-2016 Aspartate aminotransferase (AST) Eva Odom FILING MACHINE OPERATOR Work Phone: Start: 08-28-2016 End: 08-29-2016 CBC W Auto Differential panel - Blood Eva Odom FILING MACHINE OPERATOR Work Phone: Start: 08-28-2016 End: 05-30-2017 Thyroid stimulating hormone (TSH) Eva Odom FILING MACHINE OPERATOR Work Phone: Start: 08-28-2016 End: 11-13-2016 Thyroxine (T4) free Eva Odom FILING MACHINE OPERATOR Work Phone: Start: 08-28-2016 End: 11-13-2016 Transferase alanine amino alt sgpt Eva Odom FILING MACHINE OPERATOR Work Phone: Start: 08-28-2016 End: 11-13-2016 Triiodothyronine (T3) Free [Mass/volume] in Serum or Plasma Eva Odom FILING MACHINE OPERATOR Work Phone: Plan of Treatment Date Care Activity Detail Author Start: 03-27-2017 End: 03-27-2017 Appointment Appointment [facility] [place] Start: 03-24-2017 End: 03-24-2017 Appointment Appointment [facility] [place] Start: 03-21-2017 End: 03-21-2017 Appointment Appointment [facility] [place] Start: 03-21-2017 End: 03-21-2017 Us preg uterus after 1st trimest 1/1st gestation US OB, >14 weeks [facility] Start: 03-21-2017 End: 03-21-2017 Ob us >/= 14 wks, sngl fetus US OB, >14 weeks [facility] Start: 03-19-2017 End: 03-19-2017 Appointment Appointment [facility] Start: 03-14-2017 End: 03-14-2017 Appointment Appointment [facility] Start: 03-06-2017 End: 03-06-2017 Appointment Appointment [facility] Start: 02-28-2017 End: 02-28-2017 Appointment Appointment [facility] Start: 02-25-2017 End: 02-25-2017 Appointment Appointment [facility] Work Phone: Start: 02-21-2017 End: 03-28-2017 Bacteria genital culture *CUV - Culture, VAG/CX Comprehensive [facility] Start: 02-21-2017 End: 02-21-2017 Appointment Appointment [facility] Start: 02-21-2017 End: 03-28-2017 Bacteria genital culture *CUV - Culture, VAG/CX [facility] Start: 02-07-2017 End: 02-07-2017 Appointment Appointment [facility] Start: 01-23-2017 End: 03-28-2017 Us preg uterus real time f/u trnsabdl per fetus US uterus, re-evaluation of size or follow up [facility] Start: 01-23-2017 End: 01-23-2017 Appointment Appointment [facility] Work Phone: Start: 01-23-2017 End: 03-28-2017 Ob us, follow-up, per fetus US uterus, re-evaluation of size or follow up [facility] Start: 01-09-2017 End: 01-09-2017 Appointment Appointment [facility] Endocrinolog y Work Phone: Start: 12-25-2016 End: 12-30-2016 *GESTGTT Gestational GRR 3Hr 100 gm *GESTGTT Gestational GRR 3Hr 100 gm [facility] Start: 12-25-2016 End: 12-25-2016 *RHOGAM Rhogam/RH Immune Globulin/Unit *RHOGAM Rhogam/RH Immune Globulin/Unit [facility] Start: 12-25-2016 End: 12-25-2016 Appointment Appointment [facility] [place] Start: 12-25-2016 End: 12-30-2016 *GESTGTT Gestational GRR 3Hr 100 gm *GESTGTT Gestational GRR 3Hr 100 gm [facility] Work Phone: Start: 12-25-2016 End: 12-25-2016 *RHOGAM Rhogam/RH Immune Globulin/Unit *RHOGAM Rhogam/RH Immune Globulin/Unit [facility] Work Phone: Start: 12-06-2016 End: 12-25-2016 *CBC with Differential *CBC with Differential [facility] [place] Start: 12-06-2016 End: 12-25-2016 *RHOGAM Rhogam/RH Immune Globulin/Unit *RHOGAM Rhogam/RH Immune Globulin/Unit [facility] [place] Start: 12-06-2016 End: 12-25-2016 *TS Type and Screen *TS Type and Screen [facility] [place] Start: 12-06-2016 End: 12-25-2016 Glucose tolerance 4 hours panel - Serum or Plasma *GTT4 Glucose Tolerance Test (GTT) [facility] [place] Start: 12-06-2016 End: 12-06-2016 Appointment Appointment [facility] Work Phone: Start: 12-06-2016 End: 12-25-2016 *CBC with Differential *CBC with Differential [facility] [place] Start: 12-06-2016 End: 12-25-2016 *RHOGAM Rhogam/RH Immune Globulin/Unit *RHOGAM Rhogam/RH Immune Globulin/Unit [facility] Start: 12-06-2016 End: 12-25-2016 *TS Type and Screen *TS Type and Screen [facility] [place] Start: 12-06-2016 End: 12-25-2016 Glucose tolerance 4 hours panel - Serum or Plasma *GTT4 Glucose Tolerance Test (GTT) [facility] [place] Start: 12-03-2016 End: 12-03-2016 Appointment Appointment [facility] Work Phone: Start: 11-27-2016 End: 11-27-2016 Appointment Appointment [facility] Work Phone: Start: 11-27-2016 End: 11-27-2016 Appointment Appointment [facility] Work Phone: Start: 11-21-2016 End: 12-25-2016 Thyroid stimulating hormone (TSH) *TSH [facility] [place] Start: 11-21-2016 End: 12-25-2016 Thyroxine (T4) free *T4 free [facility] [place] Start: 11-21-2016 End: 12-25-2016 Triiodothyronine (T3) free *T3-Free [facility] [place] Start: 11-21-2016 End: 12-25-2016 Thyroid stimulating hormone (TSH) *TSH [facility] Work Phone: Start: 11-21-2016 End: 12-25-2016 Thyroxine (T4) free *T4 free [facility] Work Phone: Start: 11-21-2016 End: 12-25-2016 Triiodothyronine (T3) free *T3-Free [facility] Work Phone: Start: 09-06-2016 End: 09-06-2016 *MISC - Miscellaneous Lab Test #1 *MISC - Miscellaneous Lab Test #1 [facility] [place] Start: 09-06-2016 End: 09-06-2016 Thyroid stimulating hormone (TSH) *TSH [facility] [place] Start: 09-06-2016 End: 09-06-2016 Thyroxine (T4) free *T4 free [facility] [place] Start: 09-06-2016 End: 09-06-2016 *MISC - Miscellaneous Lab Test #1 *MISC - Miscellaneous Lab Test #1 [facility] Work Phone: Start: 09-06-2016 End: 09-06-2016 Thyroid stimulating hormone (TSH) *TSH [facility] Work Phone: Start: 09-06-2016 End: 09-06-2016 Thyroxine (T4) free *T4 free [facility] Work Phone: Start: 09-01-2016 End: 09-01-2016 Office outpatient new 45 minutes [id number] Vst-New Level IV [facility] [place] Start: 09-01-2016 End: 09-01-2016 Office/outpatient visit, new, level 4 [id number] Vst-New Level IV [facility] Work Phone: Start: 08-28-2016 End: 11-13-2016 *MISC - Miscellaneous Lab Test #1 *MISC - Miscellaneous Lab Test #1 [facility] [place] Start: 08-28-2016 End: 11-13-2016 Alanine aminotransferase (ALT) ALT (SGPT) [facility] [place] Start: 08-28-2016 End: 08-29-2016 Aspartate aminotransferase (AST) *AST (SGOT) [facility] [place] Start: 08-28-2016 End: 08-29-2016 CBC W Auto Differential panel - Blood *CBC [facility] [place] Start: 08-28-2016 End: 11-13-2016 Thyroid stimulating hormone (TSH) *TSH [facility] [place] Start: 08-28-2016 End: 11-13-2016 Thyroxine (T4) free *T4 free [facility] [place] Start: 08-28-2016 End: 11-13-2016 Triiodothyronine (T3) free *T3-Free [facility] [place] Start: 08-28-2016 End: 11-13-2016 *MISC - Miscellaneous Lab Test #1 *MISC - Miscellaneous Lab Test #1 [facility] Work Phone: Start: 08-28-2016 End: 11-13-2016 Alanine aminotransferase (ALT) ALT (SGPT) [facility] Work Phone: Start: 08-28-2016 End: 08-29-2016 Aspartate aminotransferase (AST) *AST (SGOT) [facility] Work Phone: Start: 08-28-2016 End: 08-29-2016 CBC W Auto Differential panel - Blood *CBC [facility] Work Phone: Start: 08-28-2016 End: 11-13-2016 Thyroid stimulating hormone (TSH) *TSH [facility] [place] Start: 08-28-2016 End: 11-13-2016 Thyroxine (T4) free *T4 free [facility] [place] Start: 08-28-2016 End: 11-13-2016 Triiodothyronine (T3) free *T3-Free [facility] Work Phone: Immunizations Immunization Date Immunization Notes Care Provider Jerrell lugo 01-09-2017 [id number] Emelina Lundberg [facility] [place] 01-09-2017 [id number] Cathy Fraser [facility] Summary Purpose Family History No Family History Records Found Advance Directives No Advanced Directives Records Found Additional Source Comments INFORMATION SOURCE (unrecogn ized section and content) FOR RECORDS PERTAINING TO PATIENTS WHO ARE OR HAVE BEEN ENROLLED IN A CHEMICAL DEPENDENCY/SUBSTANCEABUSE PROGRAM, SOME INFORMATION MAY BE OMITTED. This clinical summary was aggregated from multiple sources. Caution should be exercised in using it in the provision of clinical care. This summary normalizes information from multiple sources, and as a consequence, information in this document may materially change the coding, format and clinical context of patient data. In addition, data may be omitted in some cases. CLINICAL DECISIONS SHOULD BE BASED ON THE PRIMARY CLINICAL RECORDS. [employer] provides no warranty or guarantee of the accuracy or completeness of information in this document.
[2023-07-17 08:24] LABS: AST(SGOT) 19 U/L (15-37); Alanine Aminotransfer ALT/SGPT 26 U/L (13-56); Albumin, Serum 3.4 g/dL (3.2-5.0); Alkaline Phosphatase 80 U/L (45-117); Anion Gap 10 (5-15); BUN 10 mg/dL (7-18); BUN/Creat Ratio 13.4 RATIO (10-20); Bilirubin, Direct 0.55 mg/dL (0.00-0.30); Calcium,Total 8.9 mg/dL (8.5-10.1); Chloride 107 mmol/L (98-107); Creatinine, Serum 0.75 mg/dL (0.55-1.02); EST Glomerular Filtration Rate 89 mL/min (>60); Est Glom Filt Rate - Afr Amer 108 mL/min (>60); Estimated Creatinine Clearance 121.42 ml/min; Glucose 120 mg/dL (74-106); Lipase 12 U/L (13-75); Potassium 3.5 mmol/L (3.5-5.1); Protein, Total 7.4 g/dL (6.4-8.2); Sodium Level 141 mmol/L (136-145)
--- NOTE | 2023-07-17 10:32 | PCM.HP.STD ---
[facility] - [facility] Date of Service: 07/17/23 Chief Complaint: Right upper quadrant/ epigastric pain [facility] Narrative FELECIA WHITMAN, is a 48 F who presents with 2 day history of epigastric and right upper quadrant pain. Patient notes on Friday around lunchtime, she had pain in the epigastric/slightly to the right upper abdomen side. She stated by Friday night the pain progressed and relocated to the right upper quadrant. She noted the pain would come in waves. She noted Friday morning the pain had returned and would intensify off and on throughout the day. She was able to eat a little of her salad for lunch yesterday and then the pain returned. Friday night by 7:30 pm the pain had resolved. She states waking up this morning and the pain had returned which brought her to the ED. Patient states she has had the epigastric/RUQ pain intermittently for a few months. She has tried taking TUMs without any relief. She is unsure if her symptoms are related to food. She notes the pain causes nausea. She denies vomiting, fever, chills, or change in bowel habits. She denies any cardiac or pulmonary history. She denies any previous complications or side effects from anesthesia. She notes her only surgery has been a total thyroidectomy. She has no abdominal surgical history. RUQ u/s results demonstrate: IMPRESSION: Cholelithiasis and biliary sludge with a large impacted gallstone in the gallbladder neck, moderate gallbladder wall thickening, and gallbladder distention concerning for acute cholecystitis. Heterogeneous liver from hepatic steatosis or other hepatocellular disease. Labs are remarkable for: WBC 15.2, Hgb 12.9, Hct 38.4, Plt 203. Liver enzymes T. Bili 1.50, AST 19, ALT 26, Alk Phos 80. [facility] Medical History Cancer Multinodular goiter Obesity Polycystic disease, ovaries Postoperative hypothyroidism Thyroid cancer Thyroid cancer Home Medications cholecalciferol (vitamin D3) 125 mcg (5,000 unit) capsule 125 mcg PO DAILY 08/05/22 [History Last Taken Unknown] levothyroxine 150 mcg tablet 150 mcg PO .6 days q week #90 tabs 08/05/22 [Rx Last Taken Unknown] multivitamin (Daily Multi-Vitamin tablet) 1 tab PO DAILY 08/05/22 [History Last Taken Unknown] Allergy/AdvReac Type Severity Reaction Status Date / Time amoxicillin [From Augmentin] Allergy Mild Rash Verified 08/05/22 13:38 clavulanic acid Allergy Mild Rash Verified 08/05/22 13:38 [From Augmentin] Family History Unknown Diabetes Grandmother Diabetes Aunt Breast cancer Father CAD (coronary artery disease) Thyroid disorder Other Alcohol abuse Cancer Surgical History duct removal from right breast History of colposcopy S/P thyroidectomy Social History Smoking Status: Never smoker alcohol intake: current alcohol intake frequency: a few times a month substance use type: does not use caffeine: Yes what type of physical activity do you participate in: none seatbelt use: always do you feel safe at home: Yes additional social history: DAVID - deana MULLER Constitutional Constitutional: Reports headache(s) Eyes Eyes: Reports systems reviewed and no addt'l complaints, except as documented ENT HEENT: Reports systems reviewed and no addt'l complaints, except as documented Cardiovascular Cardiovascular: Reports systems reviewed and no addt'l complaints, except as documented Respiratory/Chest Respiratory/Chest: Reports systems reviewed and no addt'l complaints, except as documented Gastrointestinal Gastrointestinal: Reports systems reviewed and no addt'l complaints, except as documented Genitourinary Genitourinary: Reports systems reviewed and no addt'l complaints, except as documented Musculoskeletal Musculoskeletal: Reports systems reviewed and no addt'l complaints, except as documented Integumentary Integumentary: Reports systems reviewed and no addt'l complaints, except as documented Neurologic Neurologic: Reports systems reviewed and no addt'l complaints, except as documented Psychiatric Psychiatric: Reports systems reviewed and no addt'l complaints, except as documented Endocrine Endocrinology: Reports systems reviewed and no addt'l complaints, except as documented Hematologic/Lymphatic Hematologic/Lymphatic: Reports systems reviewed and no addt'l complaints, except as documented Allergic/Immunologic Allergic/Immunologic: Reports systems reviewed and no addt'l complaints, except as documented Vital Signs Vital Signs Vital Signs: 07/17/23 07:23 Temperature 98.3 F Temperature Source Temporal Pulse Rate 107 H Respiratory Rate 18 Blood Pressure 150/88 H Blood Pressure Mean 108 Pulse Ox 96 Oxygen Delivery Method Room Air Weight Weight: 286 lb 9.615 oz Body Mass Index (BMI) 52.4 Physical Exam Const alert, oriented x3 and no apparent distress HEENT normocephalic and head/scalp atraumatic Eyes PERRL Neck full ROM Lymph Lymphatic: no lymphadenopathy noted Resp normal respiratory effort and clear to auscultation bilaterally Cardio regular rhythm Rate: tachycardic GI soft to palpation Inspection: central obesity Auscultation: hypoactive bowel sounds Palpation: soft and tender epigastric, RUQ and العراقي's sign no CVA tenderness Back/Spine no CVA tenderness Extremity normal to inspection Skin no rashes or lesions noted Neuro no focal motor deficits and no sensory deficits noted Psych mental status grossly normal and thought process normal Results Lab / Micro Data 07/17/23 07:50 07/17/23 07:50 Labs: Laboratory Results - last 24 hr 07/17/23 07:50: WBC 15.2 H, RBC 4.09 L, Hgb 12.9, Hct 38.4, MCV 93.9, MCH 31.5, MCHC 33.6, RDW Std Deviation 45.1 H, RDW Coeff of Rula 13.1, Plt Count 203, MPV 10.3, Immature Gran % (Auto) 0.500, Neut % (Auto) 86.9 H, Lymph % (Auto) 5.1 L, Chambers % (Auto) 7.2, Eos % (Auto) 0.2, Baso % (Auto) 0.1, Absolute Neuts (auto) 13.2 H, Absolute Lymphs (auto) 0.77 L, Nucleated RBC % 0, Sodium 141, Potassium 3.5, Chloride 107, Carbon Dioxide 24.0, Anion Gap 10, BUN 10, Creatinine 0.75, Estim Creat Clear Calc 121.42, Est GFR (MDRD) Af Amer 108, Est GFR (MDRD) Non-Af 89, BUN/Creatinine Ratio 13.4, Glucose 120 H, Calcium 8.9, Total Bilirubin 1.50 H, Direct Bilirubin 0.55 H, AST 19, ALT 26, Alkaline Phosphatase 80, Total Protein 7.4, Albumin 3.4, Globulin 4.0, Lipase 12 L, Serum , Qual NEGATIVE Imaging Radiology Impression Gallbladder Ultrasound 07/17/23 07:50 IMPRESSION: Cholelithiasis and biliary sludge with a large impacted gallstone in the gallbladder neck, moderate gallbladder wall thickening, and gallbladder distention concerning for acute cholecystitis. Heterogeneous liver from hepatic steatosis or other hepatocellular disease. Electronically Signed: Adina Bui MD at 9:23 EST Reading Location ID and State: [facility] / [place] Tel , Service support , Assessment & Plan Assessment/Plan (1) Acute calculous cholecystitis: PLAN: I am seeing this patient in conjunction with Dr. Vaughn. He will independently evaluate this patient. Patient presents with right upper quadrant pain. RUQ u/s and lab work along with patient's physical exam indicate acute cholecystitis with calculus. We will plan to admit the patient for IV hydration, pain control and antibiotics. Dr. Vaughn will plan to perform a laparoscopic cholecystectomy with intraoperative cholangiogram. Procedure details, risks and benefits have been explained to the patient. Patient is aware that if choledocholithiasis is found, she will need an ERCP completed at a different time setting. Patient has had the opportunity to ask and have questions answered. Patient verbally understands and agrees with the plan. Patient is penicillin allergic from Augmentin. Thank you for allowing us to participate in this patient's care. Charges/Coding Visit Charges OBSV E&M: [id number] Observ/hosp same date L2
[2023-07-17] MEDS: Clindamycin 900 MG/50 ML BAG 75 MG IV (10:41)
[2023-07-17 11:13] VITALS: BP 135/61; PULSE 84; RESP 16; O2SAT 94
--- OUTSIDE RECORDS SUMMARY | 2023-07-17 11:34 | XMS RPT_ITS | CCD ---
Author Name Unknown Address [address] [place] [address] Organization [facility] Care Team Providers Care Veterinary Technician Assistant Name Role Phone Emelina Fleming MD Unavailable [phone] Olive GOODSON, Cathy Santos Unavailable RAMÍREZ Larios RN, Kandice Espinosa Unavailable Chepe Larios RN RN, Kandice Espinosa Unavailable Chepe Larios RN RN, Kandice Espinosa Unavailable Unavailarturo Odom NP, Eva Flores Unavailable Judith Yuan LPN Unavailable Unavailable Catherine Peters Unavailable EMELINA FLEMING Unavailable Unavailable CHARLIE COMER Unavailable Unavailable ELEANOR TERAN ([facility]) Unavailable Wilmer Larios RN RN, Kandice A Unavailable Chepe Larios RN RN, Kandice Espinosa Unavailable UnavailCatherine Ashford Unavailable Catherine Peters Unavailable Eva Odom NP Unavailable [phone] Judith Yuan LPN Unavailable Unavailable Emelina Fleming MD Unavailable [phone] RAMÍREZ Larios RN, Kandice Espinosa Unavailable Unavailarturo cavanaugh Unavailable Primary Care Provider Unavailarturo e Medications Completed/Discontinued Medications Medication Drug Class(es) Dates Sig (Normalized) Sig (Original) metroNIDAZOLE 500 mg oral tablet (17 sources) Nitroimidazole Antimicrobial Start: 02-24-2017 take 1 tablet by mouth twice daily FLAGYL 500 MG TABS One tablet by mouth twice daily METRONIDAZOLE [id number] Emelina Fleming MD Drug Treatment Unknown - unknown (5 sources) No information available. PNV No.40-Iron Fum-FA Cmb No.1 27-1 mg tab (1 source) PNV No.40-Iron Fum-FA Cmb No.1 27-1 mg tab Take by mouth. 0 Active Problems Active Problems Problem Classification Problem Date Documented Date Episodic/Chronic Abdominal pain (1 source) Right upper quadrant pain; Translations: [Right upper quadrant pain] 07-17-2023 Episodic Other complications of (1 source) Obesity; Translations: [Obesity complicating , unspecified trimester] Onset: 07-25-2016 07-25-2016 Chronic Other nutritional; endocrine; and metabolic disorders (20 [...] unspecified trimester] Onset: 08-28-2016 01-03-2017 Episodic Other complications of (1 source) RhD negative; Translations: [Other specified related conditions, unspecified trimester] Onset: 02-24-2015 10-08-2016 Episodic Other complications of (1 source) Finding of pattern of ; Translations: [Supervision of other high risk pregnancies, unspecified trimester] Onset: 07-25-2016 07-25-2016 Episodic Other complications of (1 source) Multigravida of advanced maternal age; Translations: [Supervision of elderly multigravida, unspecified trimester] Onset: 07-25-2016 07-25-2016 Episodic Other nutritional; endocrine; and metabolic disorders (1 source) H/O: thyroid disorder; Translations: [Personal history of other endocrine, nutritional and metabolic disease] Onset: 07-25-2016 08-23-2016 Episodic Other and delivery including normal (20 sources) Gestation period, 30 weeks; Translations: [Gestation period, 25 weeks] Onset: 10-08-2016 01-08-2017 Episodic Other screening for suspected conditions [...] Mass Index) 49.1 kg/m2 Cathy Schaefer NP [facility] 03-27-2017 08:30-0500 BP Diastolic 80 mm[Hg] Cathy Schaefer NP [facility] 03-27-2017 08:30-0500 BP Systolic 126 mm[Hg] Cathy Schaefer NP [facility] 03-27-2017 08:30-0500 Weight 125.74 kg Ctahy Schaefer NP [facility] 03-24-2017 13:18-0500 BMI (Body Mass Index) 48.92 kg/m2 Emelina Fleming MD [facility] 03-24-2017 13:18-0500 BP Diastolic 79 mm[Hg] Emelina Fleming MD [facility] 03-24-2017 13:18-0500 BP Systolic 119 mm[Hg] Emelina Fleming MD [facility] 03-24-2017 13:18-0500 Weight 125.28 kg Emelina Fleming MD [facility] 03-21-2017 14:36-0500 BMI (Body Mass Index) 49.06 kg/m2 Cathy Schaefer NP [facility] 03-21-2017 14:36-0500 BP Diastolic 73 mm[Hg] Cathy Schaefer FISH FARM MANAGER [facility] 03-21-2017 14:36-0500 BP Systolic 113 mm[Hg] Cathy Schaefer FISH FARM MANAGER [facility] 03-21-2017 14:36-0500 Weight 125.65 kg Cathy Schaefer NP [facility] 03-19-2017 08:06-0500 BMI (Body Mass Index) 40.24 kg/m2 Emelina Fleming MD [facility] 03-19-2017 08:06-0500 BP Diastolic 79 mm[Hg] Emelina Fleming MD [facility] 03-19-2017 08:06-0500 BP Systolic 124 mm[Hg] Emelina Fleming MD [facility] 03-19-2017 08:06-0500 Respiratory Rate 16 /min Emelina Fleming MD [facility] 03-19-2017 08:06-0500 Weight 103.06 kg Emelina Fleming MD [facility] 03-14-2017 08:17-0400 BMI (Body Mass Index) 49.7 kg/m2 Emelina Fleming MD [facility] 03-14-2017 08:17-0400 Body Temperature 98 [degF] Emelina Fleming MD [facility] 03-14-2017 08:17-0400 BP Diastolic 77 mm[Hg] Emelina Fleming MD [facility] 03-14-2017 08:17-0400 BP Systolic 127 mm[Hg] Emelina Fleming MD [facility] 03-14-2017 08:17-0400 Pulse (Heart Rate) 94 /min Emelina Fleming MD [facility] 03-14-2017 08:17-0400 Respiratory Rate 16 /min Emelina Fleming MD [facility] 03-14-2017 08:17-0400 Weight 127.28 kg Emelina Fleming MD [facility] 02-28-2017 08:11-0400 BMI (Body Mass Index) 48.89 kg/m2 Emelina Fleming MD [facility] 02-28-2017 [id number] Body Temperature 96.8 [degF] Emelina Fleming MD [facility] 02-28-2017 08:11-0400 BP Diastolic 76 mm[Hg] Emelian Fleming MD [facility] 02-28-2017 08:11-0400 BP Systolic 119 mm[Hg] Emelina Fleming MD [facility] 02-28-2017 08:11-0400 Pulse (Heart Rate) 97 /min Emelina Fleming MD [facility] 02-28-2017 08:11-0400 Respiratory Rate 16 /min Emelina Fleming MD [facility] 02-28-2017 08:[id number] Weight 125.19 kg Emelina Fleming MD [facility] 02-25-2017 07:43-0400 Height 160.02 cm Emelina Fleming MD [facility] 02-21-2017 08:19-0400 BMI (Body Mass Index) 48.64 kg/m2 Emelina Fleming MD [facility] 02-21-2017 08:19-0400 Body Temperature 97.3 [degF] Emelina Fleming MD [facility] 02-21-2017 08:19-0400 BP Diastolic 77 mm[Hg] Emelina Fleming MD [facility] 02-21-2017 08:19-0400 BP Systolic 117 mm[Hg] Emelina Fleming MD [facility] 02-21-2017 08:19-0400 Pulse (Heart Rate) 102 /min Emelina Fleming MD [facility] 02-21-2017 08:19-0400 Respiratory Rate 16 /min Emelina Fleming MD [facility] 02-21-2017 08:19-0400 Weight 124.56 kg Emelina Fleming MD [facility] 02-07-2017 05:14-0400 BMI (Body Mass Index) 49.28 kg/m2 Emelina Fleming MD [facility] 02-07-2017 05:14-0400 BP Diastolic 67 mm[Hg] Emelina Fleming MD [facility] 02-07-2017 05:14-0400 BP Systolic 122 mm[Hg] Emelina Fleming MD [facility] 02-07-2017 05:14-0400 Weight 126.19 kg Emelina Fleming MD [facility] 01-23-2017 08:42-0400 BMI (Body Mass Index) 48.99 kg/m2 Emelina Fleming MD [facility] 01-23-2017 08:42-0400 Body Temperature 97.6 [degF] Emelina Fleming MD [facility] 01-23-2017 08:42-0400 BP Diastolic 71 mm[Hg] Emelina Fleming MD [facility] 01-23-2017 08:42-0400 BP Systolic 116 mm[Hg] Emelina Fleming MD [facility] 01-23-2017 08:42-0400 Pulse (Heart Rate) 94 /min Emelina Fleming MD [facility] 01-23-2017 08:42-0400 Respiratory Rate 16 /min Emelina Fleming MD [facility] 01-23-2017 08:42-0400 Weight 125.47 kg Emelina Fleming MD [facility] 01-09-2017 08:05-0400 BMI (Body Mass Index) 49.13 kg/m2 Cathy Schaefer NP [facility] 01-09-2017 08:05-0400 Body Temperature 97.8 [degF] Cathy Schaefer NP [facility] 01-09-2017 08:05-0400 BP Diastolic 73 mm[Hg] Cathy Jaureguis FISH FARM MANAGER [facility] 01-09-2017 08:05-0400 BP Systolic 115 mm[Hg] Cathy Jaureguis FISH FARM MANAGER [facility] 01-09-2017 08:05-0400 Pulse (Heart Rate) 93 /min Cathy Jaureguis FISH FARM MANAGER [facility] 01-09-2017 08:05-0400 Respiratory Rate 16 /min Cathy Jaureguis FISH FARM MANAGER [facility] 01-09-2017 08:05-0400 Weight 125.83 kg Cathy cShaefer FISH FARM MANAGER [facility] 12-25-2016 07:42-0400 BMI (Body Mass Index) 48.92 kg/m2 Eva Lei FISH FARM MANAGER [facility] Work Phone: 12-25-2016 07:42-0400 Body Temperature 98.2 [degF] Eva Odom FISH FARM MANAGER [facility] Work Phone: 12-25-2016 07:42-0400 BP Diastolic 81 mm[Hg] Eva Shogustavo FISH FARM MANAGER [facility] Work Phone: 12-25-2016 07:42-0400 BP Systolic 132 mm[Hg] Eva Shogustavo FISH FARM MANAGER [facility] Work Phone: 12-25-2016 07:42-0400 Pulse (Heart Rate) 105 /min Eva Odom FISH FARM MANAGER [facility] Work Phone: 12-25-2016 07:42-0400 Respiratory Rate 17 /min Eva Shogustavo FISH FARM MANAGER [facility] Work Phone: 12-25-2016 07:42-0400 Weight 125.28 kg Eva Odom FISH FARM MANAGER [facility] Work Phone: 12-06-2016 09:36-0400 BMI (Body Mass Index) 49.2 kg/m2 Emelina Fleming MD [facility] 12-06-2016 09:36-0400 Body Temperature 99.2 [degF] Emelina Fleming MD [facility] 12-06-2016 09:36-0400 BP Diastolic 74 mm[Hg] Emelina Fleming MD [facility] 12-06-2016 09:36-0400 BP Systolic 108 mm[Hg] Emelina Fleming MD [facility] 12-06-2016 09:36-0400 Pulse (Heart Rate) 91 /min Emelina Fleming MD [facility] 12-06-2016 09:36-0400 Respiratory Rate 16 /min Emelina Fleming MD [facility] 12-06-2016 09:36-0400 Weight 126.01 kg Emelina Fleming MD [facility] 12-03-2016 07:47-0400 BMI (Body Mass Index) 49.1 kg/m2 Judith Yuan LPN [facility] Work Phone: 12-03-2016 07:47-0400 Body Temperature 98.2 [degF] Judith Yuan LPN [facility] Work Phone: 12-03-2016 07:47-0400 BP Diastolic 68 mm[Hg] Judith Yuan LPN [facility] Work Phone: 12-03-2016 07:47-0400 BP Systolic 110 mm[Hg] Judith Yuan LPN [facility] Work Phone: 12-03-2016 07:47-0400 Height 160.02 cm Judith Yuan LPN [facility] Work Phone: 12-03-2016 07:47-0400 Pulse (Heart Rate) 84 /min Judith Yuan LPN [facility] Work Phone: 12-03-2016 07:47-0400 Respiratory Rate 20 /min Judith Yuan LPN [facility] Work Phone: 12-03-2016 07:47-0400 Weight 125.74 kg Judith Yuan LPN [facility] Work Phone: 08-28-2016 10:47-0400 BMI (Body Mass Index) 47.68 kg/m2 Eva Odom NP [facility] Work Phone: 08-28-2016 10:47-0400 BP Diastolic 68 mm[Hg] Eva Odom NP [facility] Work Phone: 08-28-2016 10:47-0400 BP Systolic 137 mm[Hg] Eva Odom NP [facility] Work Phone: 08-28-2016 10:47-0400 BSA (Body Surface Area) 2.2 m2 Eva Odom NP [facility] Work Phone: 08-28-2016 10:47-0400 Height 160.02 cm Eva Odom NP [facility] Work Phone: 08-28-2016 10:47-0400 Pulse (Heart Rate) 86 /min Eva Odom NP [facility] Work Phone: 08-28-2016 10:47-0400 Pulse Oximetry 96 % Eva Odom NP [facility] Work Phone: 08-28-2016 10:47-0400 Respiratory Rate 18 /min Eva Odom NP [facility] Work Phone: 08-28-2016 10:47-0400 Weight 122.11 kg Eva Odom NP [facility] Work Phone: Encounters Encounter Date Encounter Type Care Provider Facility Start: 07-17-2023 End: 07-17-2023 Patient encounter procedure Basia Shepherd APRN.[employer] Work Phone: [facility] Procedures Date Procedure Procedure Detail Performing Clinician Start: 03-27-2017 End: 03-27-2017 nonstress test Cathy Schaefer FISH FARM MANAGER Work Phone: Start: 03-27-2017 End: 03-27-2017 Routine OB Visit (Global) Cathy young FISH FARM MANAGER Work Phone: Start: 03-27-2017 End: 03-27-2017 non-stress test Cathy Jaureguis N P Work Phone: Start: 03-27-2017 End: 03-27-2017 Routine OB Visit (Global) Cathy Wilson gs FISH FARM MANAGER Work Phone: Start: 03-24-2017 End: 03-25-2017 nonstress test Cathy Jaureguis FISH FARM MANAGER Work Phone: Start: 03-24-2017 End: 03-25-2017 Routine OB Visit (Global) Cathy Wilson gs FISH FARM MANAGER Work Phone: Start: 03-24-2017 End: 03-25-2017 non-stress test Cathy Schaefer N P Work Phone: Start: 03-24-2017 End: 03-25-2017 Routine OB Visit (Global) Cathy Wilson gs FISH FARM MANAGER Work Phone: Start: 03-21-2017 End: 03-21-2017 nonstress test Cathy Schaefer FISH FARM MANAGER Work Phone: Start: 03-21-2017 End: 03-21-2017 Routine OB Visit (Global) Cathy Wilson gs FISH FARM MANAGER Work Phone: Start: 03-21-2017 End: 03-21-2017 non-stress test Cathy Schaefer N P Work Phone: Start: 03-21-2017 End: 03-21-2017 Routine OB Visit (Global) Cathy Wilson gs FISH FARM MANAGER Work Phone: Start: 03-19-2017 End: 03-19-2017 Routine [...] End: 01-09-2017 Routine OB Visit (Global) Cathy Danielle Steve young FISH FARM MANAGER Work Phone: Start: 01-09-2017 End: 01-09-2017 Routine OB Visit (Global) Cathy young FISH FARM MANAGER Work Phone: Start: 12-25-2016 End: 12-30-2016 *GESTGTT [...] [Units/volume] in Serum or Plasma Eva Odom NP Work Phone: Start: 11-21-2016 End: 12-25-2016 Thyroxine (T4) free [Mass/volume] in Serum or Plasma Eva Odom FISH FARM MANAGER Work Phone: Start: 11-21-2016 End: 12-25-2016 Triiodothyronine (T3) Free [Mass/volume] in Serum or Plasma Eva Odom FISH FARM MANAGER Work Phone: Start: 11-21-2016 End: 12-25-2016 Thyroid stimulating hormone (TSH) Eva dOom FISH FARM MANAGER Work Phone: Start: 11-21-2016 End: 12-25-2016 Thyroxine (T4) free Eva Odom FISH FARM MANAGER Work Phone: Start: 11-21-2016 End: 12-25-2016 Triiodothyronine (T3) free Eva pate FISH FARM MANAGER Work Phone: Start: 08-28-2016 End: 11-13-2016 *MISC - Miscellaneous Lab Test #1 Eva Odom FISH FARM MANAGER Work Phone: Start: 08-28-2016 End: 08-29-2016 Aspartate aminotransferase [Enzymatic activity/volume] in Serum or Plasma Eva Odom FISH FARM MANAGER Work Phone: Start: 08-28-2016 End: 08-29-2016 CBC W Auto Differential panel - Blood Eva Odom FISH FARM MANAGER Work Phone: Start: 08-28-2016 End: 05-30-2017 Thyrotropin [Units/volume] in Serum or Plasma Eva Odom FISH FARM MANAGER Work Phone: Start: 08-28-2016 End: 11-13-2016 Thyroxine (T4) free [Mass/volume] in Serum or Plasma Eva Odom FISH FARM MANAGER Work Phone: Start: 08-28-2016 End: 11-13-2016 Transferase alanine amino alt sgpt Eva Odom FISH FARM MANAGER Work Phone: Start: 08-28-2016 End: 11-13-2016 Triiodothyronine (T3) Free [Mass/volume] in Serum or Plasma Eva Odom FISH FARM MANAGER Work Phone: Start: 08-28-2016 End: 11-13-2016 *MISC - Miscellaneous Lab Test #1 Eva Odom FISH FARM MANAGER Work Phone: Start: 08-28-2016 End: 08-29-2016 Aspartate aminotransferase (AST) Eva Odom FISH FARM MANAGER Work Phone: Start: 08-28-2016 End: 08-29-2016 CBC W Auto Differential panel - Blood Eva Odom FISH FARM MANAGER Work Phone: Start: 08-28-2016 End: 05-30-2017 Thyroid stimulating hormone (TSH) Eva Flores Lei GOODSON Work Phone: Start: 08-28-2016 End: 11-13-2016 Thyroxine (T4) free Eva Sheikhgustavo GOODSON Work Phone: Start: 08-28-2016 End: 11-13-2016 Transferase alanine amino alt sgpt Eva Sheikhgustavo FISH FARM MANAGER Work Phone: Start: 08-28-2016 End: 11-13-2016 Triiodothyronine (T3) Free [Mass/volume] in Serum or Plasma Eva J Lei GOODSON Work Phone: Start: 09-25-2011 Lipid 1996 panel - S joselyn or Plasma Basia Shepherd APRN.CNP Work Phone: Plan of Treatment Date Care Activity Detail Author Start: 07-25-2025 Urine microalbumin profile DTaP,Tdap,Td Vaccine (2 - Td or Tdap) [facility] Start: 05-12-2023 Depression Assessment Depression Assessment [facility] Start: 01-10-2023 Covid-19 Vaccine () Covid-19 Vaccine () [facility] Start: 2022 Diabetes Screening Diabetes Screening [facility] Start: 2022 Lipid panel Lipid Screening [facility] Start: 2022 Screening for malignant neoplasm of colon [facility] Start: 12-10-2020 Screening for malignant neoplasm of cervix [facility] Start: 2017 Screening for malignant neoplasm of breast Mammogram Screening [facility] Start: 03-27-2017 End: 03-27-[address] [facility] Start: 03-24-2017 End: 03-24-2017 Appointment Appointment [facility] Start: 03-21-2017 End: 03-21-[address] [facility] Start: 03-21-2017 End: 03-21-2017 Us preg uterus after 1st trimest 1/1st gestation US OB, >14 weeks [facility] Start: 03-21-2017 End: 03-21-2017 Ob us >/= 14 wks, sngl fetus US OB, >14 weeks [facility] Start: 03-19-2017 End: 03-19-[address] [facility] Start: 03-14-2017 End: 03-14-[address] [facility] Start: 03-06-2017 End: 03-06-[address] [facility] Start: 02-28-2017 End: 02-28-[address] [facility] Start: 02-25-2017 End: 02-25-2017 Appointment Appointment [facility] Work Phone: Start: 02-21-2017 End: 03-28-2017 Bacteria genital culture *CUV - Culture, VAG/CX [facility] Start: 02-21-2017 End: 02-21-2017 Appointment Appointment [facility] Start: 02-21-2017 End: 03-28-2017 Bacteria genital culture *CUV - Culture, VAG/CX [facility] Start: 02-07-2017 End: 02-07-2017 Appointment Appointment [facility] Start: 01-23-2017 End: 03-28-2017 Us preg uterus real time f/u trnsabdl per fetus US uterus, re-evaluation of size or follow up [facility] Start: 01-23-2017 End: 01-23-2017 Appointment Appointment [facility] Work Phone: Start: 01-23-2017 End: 03-28-2017 Ob us, follow-up, per fetus US uterus, re-evaluation of size or follow up [facility] Start: 01-09-2017 End: 01-09-2017 Appointment Appointment [facility] Work Phone: Start: 12-25-2016 End: 12-30-2016 *GESTGTT Gestational GRR 3Hr 100 gm *GESTGTT Gestational GRR 3Hr [address] [facility] Start: 12-25-2016 End: 12-25-2016 *RHOGAM Rhogam/RH Immune Globulin/Unit *RHOGAM Rhogam/RH Immune Globulin/Unit [facility] Start: 12-25-2016 End: 12-25-2016 Appointment Appointment [facility] Start: 12-25-2016 End: 12-30-2016 *GESTGTT Gestational GRR 3Hr 100 gm *GESTGTT Gestational GRR 3Hr 100 gm [facility] Work Phone: Start: 12-25-2016 End: 12-25-2016 *RHOGAM Rhogam/RH Immune Globulin/Unit *RHOGAM Rhogam/RH Immune Globulin/Unit [facility] Work Phone: Start: 12-06-2016 End: 12-25-2016 *CBC with Differential *CBC with Differential [facility] Start: 12-06-2016 End: 12-25-2016 *RHOGAM Rhogam/RH Immune Globulin/Unit *RHOGAM Rhogam/RH Immune Globulin/Unit [facility] Start: 12-06-2016 End: 12-25-2016 *TS Type and Screen *TS Type and Screen [facility] Start: 12-06-2016 End: 12-25-2016 Glucose tolerance 4 hours panel - Serum or Plasma *GTT4 Glucose Tolerance Test (GTT) [facility] Start: 12-06-2016 End: 12-06-2016 Appointment Appointment [facility] Work Phone: Start: 12-06-2016 End: 12-25-2016 *CBC with Differential *CBC with Differential [facility] Start: 12-06-2016 End: 12-25-2016 *RHOGAM Rhogam/RH Immune Globulin/Unit *RHOGAM Rhogam/RH Immune Globulin/Unit [facility] Start: 12-06-2016 End: 12-25-2016 *TS Type and Screen *TS Type and Screen [facility] Start: 12-06-2016 End: 12-25-2016 Glucose tolerance 4 hours panel - Serum or Plasma *GTT4 Glucose Tolerance Test (GTT) [facility] Start: 12-03-2016 End: 12-03-2016 Appointment Appointment [facility] Work Phone: Start: 11-27-2016 End: 11-27-2016 Appointment Appointment [facility] Work Phone: Start: 11-27-2016 End: 11-27-2016 Appointment Appointment [facility] Work Phone: Start: 11-21-2016 End: 12-25-2016 Thyroid stimulating hormone (TSH) *TSH [facility] Start: 11-21-2016 End: 12-25-2016 Thyroxine (T4) free *T4 free [facility] Start: 11-21-2016 End: 12-25-2016 Triiodothyronine (T3) free *T3-Free [facility] Start: 11-21-2016 End: 12-25-2016 Thyroid stimulating hormone (TSH) *TSH [facility] Work Phone: Start: 11-21-2016 End: 12-25-2016 Thyroxine (T4) free *T4 free [facility] Work Phone: Start: 11-21-2016 End: 12-25-2016 Triiodothyronine (T3) free *T3-Free [facility] Work Phone: Start: 09-06-2016 End: 09-06-2016 *MISC - Miscellaneous Lab Test #1 *MISC - Miscellaneous Lab Test #1 [facility] Start: 09-06-2016 End: 09-06-2016 Thyroid stimulating hormone (TSH) *TSH [facility] Start: 09-06-2016 End: 09-06-2016 Thyroxine (T4) free *T4 free [facility] Start: 09-06-2016 End: 09-06-2016 *MISC - Miscellaneous Lab Test #1 *MISC - Miscellaneous Lab Test #1 [facility] Work Phone: Start: 09-06-2016 End: 09-06-2016 Thyroid stimulating hormone (TSH) *TSH [facility] Work Phone: Start: 09-06-2016 End: 09-06-2016 Thyroxine (T4) free *T4 free [facility] Work Phone: Start: 09-01-2016 End: 09-01-2016 Office outpatient new 45 minutes [id number] Vst-New Level IV [facility] Start: 09-01-2016 End: 09-01-2016 Office/outpatient visit, new, level 4 [id number] Vst-New Level IV [facility] Work Phone: Start: 08-28-2016 End: 11-13-2016 *MISC - Miscellaneous Lab Test #1 *MISC - Miscellaneous Lab Test #1 [facility] Start: 08-28-2016 End: 11-13-2016 Alanine aminotransferase (ALT) ALT (SGPT) [facility] Start: 08-28-2016 End: 08-29-2016 Aspartate aminotransferase (AST) *AST (SGOT) [facility] Start: 08-28-2016 End: 08-29-2016 CBC W Auto Differential panel - Blood *CBC [facility] Start: 08-28-2016 End: 11-13-2016 Thyroid stimulating hormone (TSH) *TSH [facility] Start: 08-28-2016 End: 11-13-2016 Thyroxine (T4) free *T4 free [facility] Start: 08-28-2016 End: 11-13-2016 Triiodothyronine (T3) free *T3-Free [facility] Start: 08-28-2016 End: 11-13-2016 *MISC - Miscellaneous Lab Test #1 *MISC - Miscellaneous Lab Test #1 [facility] Work Phone: Start: 08-28-2016 End: 11-13-2016 Alanine aminotransferase (ALT) ALT (SGPT) [facility] Work Phone: Start: 08-28-2016 End: 08-29-2016 Aspartate aminotransferase (AST) *AST (SGOT) [facility] Work Phone: Start: 08-28-2016 End: 08-29-2016 CBC W Auto Differential panel - Blood *CBC [facility] Work Phone: Start: 08-28-2016 End: 11-13-2016 Thyroid stimulating hormone (TSH) *TSH [facility] Start: 08-28-2016 End: 11-13-2016 Thyroxine (T4) free *T4 free [facility] Start: 08-28-2016 End: 11-13-2016 Triiodothyronine (T3) free *T3-Free [facility] Work Phone: Start: 1975 Hepatitis B Vaccine (1 of 3 - 3-dose series) Hepatitis B Vaccine (1 of 3 - 3-dose series) [facility] Immunizations Immunization Date Immunization Notes Care Provider Fa brittney 01-09-2017 [id number] MD [facility] 01-09-2017 [id number] Cathy Schaefer NP [facility] 07-26-2015 RHO(D) immune globulin- IV or IM Basia Shepherd APRN.[employer]RAFTSMAN Work Phone: [facility] 07-26-2015 tetanus toxoid, reduced diphtheria toxoid, and acellular pertussis vaccine, adsorbed Basia Shepherd APRN.F[employer]RICATION AND LAYOUT CRAFTSMAN Work Phone: [facility] Payers Date Payer Category Payer Private Health Insurance DAVON CROWLEY OAP [id number] 2023-Present [phone] [address] [place] [address] Open Access [id number] Social History Date Type Detail Facility Tobacco smoking stat [facility] Never smoked tobacco [facility] Work Phone: Start: 05-23-2017 Alcohol intake Current drinke r of alcohol (finding) [facility] Start: 11-08-2017 History of Social function [facility] Start: 11-08-2017 Tobacco use panel [facility] Start: 02-23-2015 Alcohol Comment occasional not while [facility] Start: 1975 Sex Assigned At Not on file [facility] History of Present illness Narrative 07-17-2023 Basia Shepherd APRN.[employer] AND [employer]AYOUT CRAFTSMAN - 07/17/2023 7:12 AM EST Note Date & Type Note Facility 07-17-2023 History of Presen t illness Narrative Patient came in with complaints of abdominal pain. Patient says it started about 2 days ago and was extremely uncomfortable under her right breast. Patient says she thought it started to let up but woke up this morning in severe discomfort. Patient says it does accompanied with nausea. Upon palpation patient grimaced and guarded. Patient is being sent to the ER for full evaluation. Patient was okay with this care plan and wants to take her self. documented in this encounter [facility] History of Past illness Narrative 10-08-2016 Note Date & Type Note Facility documented as of this encounter (statuses as of 07/17/2023) [facility] Evaluation note Note Date & Type Note Facility documented in this encounter [facility] Summary Purpose Family History No Family History Records Found Advance Directives No Advanced Directives Records Found Additional Source Comments INFORMATION SOURCE (unrecogn ized section and content) Source Comments (unrecognize d section and content) In the event this informatio n is protected by the Federal Confidentiality of Alcohol and Drug Abuse Patient Records regulations: The Federal rules restrict any use of the information to criminally investigate or prosecute any alcohol or drug abuse patient.[facility] FOR RECORDS PERTAINING TO PATIENTS WHO ARE [...] BE BASED ON THE PRIMARY CLINICAL RECORDS. [employer] [facility]. provides no warranty or guarantee of the accuracy or completeness of information in this document.
[2023-07-17] MEDS: HYDROmorphone 1 MG/ML Syringe 0.5 MG IV (12:05)
[2023-07-17 12:59] VITALS: BMI 52.4
[2023-07-17] MEDS: Lactated Ringers 1,000 ML 100 ML IV ×2 (13:21→21:17)
[2023-07-17] MEDS: 0.9% Saline Lock 10 ML Syringe IV ×2 (13:21→17:21)
[2023-07-17] MEDS: Ibuprofen 600 MG Tablet PO (13:21)
[2023-07-17 13:45] VITALS: BP 153/84; PULSE 84; RESP 16; TEMP 36.8; O2SAT 98
[2023-07-17] MEDS: Acetaminophen 325 MG Tablet 650 MG PO (15:39)
[2023-07-17 17:15] VITALS: BP 125/64; PULSE 83; RESP 18; TEMP 36.8; O2SAT 94
[2023-07-17] MEDS: oxyCODONE 5 MG Tablet PO (17:21)
[2023-07-17] MEDS: Metoclopramide 10 MG/2 ML Vial IV (17:21)
[2023-07-17 21:25] VITALS: BP 120/67; PULSE 86; RESP 16; TEMP 36.8; O2SAT 100
[2023-07-18] VITALS (14 sets, daily range): BP systolic 116–146; BP diastolic 54–82; PULSE 80–91; RESP 16–20; TEMP 36.4–37.4; O2SAT 92–100; BMI 52.7
--- NOTE | 2023-07-18 | GALL_PTH ---
PATHOLOGY RESULTS PATIENT: FELECIA WHITMAN LOC: MS3 U#:[id number] AGE/SX: 48/F ROOM: [facility] [place] RE07/18/[address]: Dr. Chandana Vaughn MD : 1975 BED: 1 DIS: 07/19/2023 SPEC #: [id number] RECD: 07/18/23 17:01 STATUS: SHANNON SANDOVAL #: [id number] CELY: 07/18/23 00:[address]: Chandana Vaughn DEPT: SURGICAL PATHOLOGY RECD BY: Pardeep Portillo ENTERED: 07/21/23 09:36 SP TYPE: INDIO HAGAN DR: No Primary Care Phys Georgiana Pepper PA-C Tissues: Gallbladder, NOS Procedures: Surgery Specimen Level III HEADER OPERATION: Laparoscopic, Cholecystectomy with IOC PRE-OP DIAGNOSIS: Acute calculous cholecystitis TISSUE SUBMITTED: Gallbladder MICROSCOPIC DIAGNOSIS Gallbladder, cholecystectomy: Acute and chronic ulcerated and hemorrhagic cholecystitis and cholelithiasis. SJ:rg 07/22/2023 MICROSCOPIC DESCRIPTION Slides are reviewed. GROSS DESCRIPTION Received is one container labeled with the patient's name and designated gallbladder. The specimen consists of a gallbladder measuring 9.0 x 4.8 x 2.9 cm. The external surface is smooth and glistening. Focally, it is granular, hemorrhagic and contains cautery artifact. The lumen of the gallbladder contains yellow-green mucoid bile and a single black calculi's measuring 2.0 cm in diameter. The mucosa is bile-stained and without any mass lesions. The gallbladder wall averages 0.6 cm in thickness and is free of mass lesions. Water Pumping Station Engineer sections of the gallbladder and the cystic duct at margin of resection are submitted in one cassette. / AM: 07/21/23 TC:2 [facility]: [id number]
[2023-07-18] MEDS: Acetaminophen 325 MG Tablet 650 MG PO ×2 (02:58→20:23)
[2023-07-18] MEDS: oxyCODONE 5 MG Tablet PO ×3 (02:58→20:24)
--- NOTE | 2023-07-18 03:27 | EKG12_ITS ---
Test Reason : PRE-OP Blood Pressure : / mmHG Vent. Rate : 080 BPM Atrial Rate : 080 BPM P-R Int : 148 ms QRS Dur : 088 ms QT Int : 378 ms P-R-T Axes : 025 -06 004 degrees QTc Int : 435 ms Normal sinus rhythm Normal ECG When compared with ECG of 19-JUN-2017 11:58, No significant change was found Confirmed by Chandana Birmingham ([id number]), web editor ALVIN GIBBONS ([id number]) on 07/22/2023 11:30:13 AM Referred By: MILLY Confirmed By:Chandana Birmingham
[2023-07-18 03:48] LABS: Internal QC Validated? YES +Cl - CLEAR BKGD; Pregnancy, Urine Negative Negative
[2023-07-18 05:55] LABS: ALB/GLOB Ratio 0.8 RATIO (0.9-2.4); AST(SGOT) 109 U/L (15-37); Alanine Aminotransfer ALT/SGPT 137 U/L (13-56); Albumin, Serum 2.7 g/dL (3.2-5.0); Alkaline Phosphatase 150 U/L (45-117); Anion Gap 5 (5-15); BUN 7 mg/dL (7-18); BUN/Creat Ratio 11.8 RATIO (10-20); Calcium,Total 8.4 mg/dL (8.5-10.1); Chloride 108 mmol/L (98-107); EST Glomerular Filtration Rate 116 mL/min (>60); Est Glom Filt Rate - Afr Amer 140 mL/min (>60); Estimated Creatinine Clearance 151.77 ml/min; Globulin 3.6 g/dL (2.2-4.2); Glucose 108 mg/dL (74-106); Potassium 3.3 mmol/L (3.5-5.1); Protein, Total 6.3 g/dL (6.4-8.2); Sodium Level 138 mmol/L (136-145)
[2023-07-18 06:08] LABS: Thyroid Stim Hormone (TSH) 1.57 uIU/mL (0.358-3.74)
[2023-07-18] MEDS: Lactated Ringers 1,000 ML 100 ML IV (06:08)
[2023-07-18 06:55] LABS: Absolute Lymphocyte Count 0.84 X10^3/uL (0.83-4.51); Basophil# 0.02 X10^3/uL; Basophil% 0.2 % (0-1); Eosinophil# 0.11 X10^3/uL; Eosinophils% 0.9 % (0-5); Hematocrit 35.1 % (37-47); Hemoglobin 11.5 g/dL (12.0-15.0); Lymphocyte # 0.84 X10^3/ul (0.83-4.51); Mean Corp Hgb Conc 32.8 g/dL (32-36); Mean Corpuscular Hgb 31.7 pg (27.0-32.0); Mean Corpuscular Volume 96.7 fL (81-99); Mean Platelet Vol. 10.5 fl (6.2-12.0); Monocyte# 0.99 X10^3/uL; Monocyte% 8.3 % (0-10); NRBC Flagged by Analyzer 0 % (0-5); Neutrophil # 9.97 X10^3/uL (2.7-7.7); Platelet Count 174 K/mm3 (150-450); RBC Distribution Width CV 13.1 % (11.6-14.6); RBC Distribution Width SD 46.5 fl (35.1-43.9); Red Blood Count 3.63 M/mm3 (4.2-5.4)
--- NOTE | 2023-07-18 08:00 | PCM.PN.SRG ---
Subjective Subjective Patient seen and examined during AM rounds. She is found resting in bed. She states that she still has abdominal pain and yet her primary complaint this morning is a headache. Objective Data Objective Data Vital Signs: Vital Signs Temp Pulse Resp BP Pulse Ox O2 Del Method 98.7 F 83 16 122/66 H 98 Room Air 07/18/23 03:03 07/18/23 03:03 07/18/23 03:03 07/18/23 03:03 07/18/23 03:03 07/18/23 03:03 Oxygen Delivery Method Room Air Weight: 286 lb 9.615 oz Body Mass Index (BMI) 52.7 Intake & Output: Intake and Output for Last 24 Hours 07/16/23 07/17/23 07/18/23 23:59 23:59 23:59 Intake Total 843.33 / 843.33 1285 / 1285 Balance 843.33 / 843.33 1285 / 1285 Lab / Micro Data 07/18/23 06:40 07/18/23 05:20 Labs: Laboratory Results - last 24 hr 07/17/23 07:50: WBC 15.2 H, RBC 4.09 L, Hgb 12.9, Hct 38.4, MCV 93.9, MCH 31.5, MCHC 33.6, RDW Std Deviation 45.1 H, RDW Coeff of Rula 13.1, Plt Count 203, MPV 10.3, Immature Gran % (Auto) 0.500, Neut % (Auto) 86.9 H, Lymph % (Auto) 5.1 L, [place] % (Auto) 7.2, Eos % (Auto) 0.2, Baso % (Auto) 0.1, Absolute Neuts (auto) 13.2 H, Absolute Lymphs (auto) 0.77 L, Nucleated RBC % 0, Sodium 141, Potassium 3.5, Chloride 107, Carbon Dioxide 24.0, Anion Gap 10, BUN 10, Creatinine 0.75, Estim Creat Clear Calc 121.42, Est GFR (MDRD) Af Amer 108, Est GFR (MDRD) Non-Af 89, BUN/Creatinine Ratio 13.4, Glucose 120 H, Calcium 8.9, Total Bilirubin 1.50 H, Direct Bilirubin 0.55 H, AST 19, ALT 26, Alkaline Phosphatase 80, Total Protein 7.4, Albumin 3.4, Globulin 4.0, Lipase 12 L, Serum , Qual NEGATIVE 07/18/23 03:10: Urine Test Negative 07/18/23 05:20: WBC Cancelled, Corrected WBC Cancelled, RBC Cancelled, Hgb Cancelled, Hct Cancelled, MCV Cancelled, MCH Cancelled, MCHC Cancelled, RDW Std Deviation Cancelled, RDW Coeff of Rula Cancelled, Plt Count Cancelled, MPV Cancelled, Immature Gran % (Auto) Cancelled, Neut % (Auto) Cancelled, Lymph % (Auto) Cancelled, [place] % (Auto) Cancelled, Eos % (Auto) Cancelled, Baso % (Auto) Cancelled, Absolute Neuts (auto) Cancelled, Absolute Lymphs (auto) Cancelled, Total Counted Cancelled, Neutrophils % (Manual) Cancelled, Band Neutrophils % Cancelled, Lymphocytes % (Manual) Cancelled, Monocytes % (Manual) Cancelled, Eosinophils % (Manual) Cancelled, Basophils % (Manual) Cancelled, Metamyelocytes % Cancelled, Myelocytes % Cancelled, Promyelocytes % Cancelled, Blast Cells % Cancelled, Plasma Cell % (Manual) Cancelled, Other Cells % Cancelled, Nucleated RBC % Cancelled, Nucleated RBCs/100 WBC Cancelled, Differential Comment Cancelled, Diff Path Review Cancelled, Hypersegmented Neuts Cancelled, Atypical Lymphocytes Cancelled, Reactive Lymphocytes Cancelled, Smudge Cells Cancelled, Toxic Granulation Cancelled, Toxic Vacuolation Cancelled, Dohle Bodies Cancelled, Robert Rods Cancelled, Platelet Estimate Cancelled, Plt Morphology Comment Cancelled, RBC Morphology Cancelled 07/18/23 05:20: RBC Morphology Cancelled, Polychromasia Cancelled, Hypochromasia Cancelled, Poikilocytosis Cancelled, Basophilic Stippling Cancelled, Anisocytosis Cancelled, Microcytosis Cancelled, Macrocytosis Cancelled, Spherocytes Cancelled, Sickle Cells Cancelled, Target Cells Cancelled, Tear Drop Cells Cancelled, Ovalocytes Cancelled, Stomatocytes Cancelled, [place] Bodies Cancelled, Eloy Cells Cancelled, Bite Cells Cancelled, Crenated Cell Cancelled, Acanthocytes (Spur) Cancelled, Rouleaux Cancelled, Schistocytes Cancelled, Sodium 138, Potassium 3.3 L, Chloride 108 H, Carbon Dioxide 25.0, Anion Gap 5, BUN 7, Creatinine 0.60, Estim Creat Clear Calc 151.77, Est GFR (MDRD) Af Amer 140, Est GFR (MDRD) Non-Af 116, BUN/Creatinine Ratio 11.8, Glucose 108 H, Calcium 8.4 L, Total Bilirubin 4.10 H, AST 109 H, ALT 137 H, Alkaline Phosphatase 150 H, Total Protein 6.3 L, Albumin 2.7 L, Globulin 3.6, Albumin/Globulin Ratio 0.8 L, TSH 1.57 07/18/23 06:40: WBC 12.0 H, RBC 3.63 L, Hgb 11.5 L, Hct 35.1 L, MCV 96.7, MCH 31.7, MCHC 32.8, RDW Std Deviation 46.5 H, RDW Coeff of Rula 13.1, Plt Count 174, MPV 10.5, Immature Gran % (Auto) 0.600, Neut % (Auto) 83.0 H, Lymph % (Auto) 7.0 L, [place] % (Auto) 8.3, Eos % (Auto) 0.9, Baso % (Auto) 0.2, Absolute Neuts (auto) 10.0 H, Absolute Lymphs (auto) 0.84, Nucleated RBC % 0 Radiography Diagnostic Testing: Radiology Impression Gallbladder Ultrasound 07/17/23 07:50 IMPRESSION: Cholelithiasis and biliary sludge with a large impacted gallstone in the gallbladder neck, moderate gallbladder wall thickening, and gallbladder distention concerning for acute cholecystitis. Heterogeneous liver from hepatic steatosis or other hepatocellular disease. Electronically Signed: Adina Bui MD at 9:23 EST , Physical Exam Const oriented x3 Resp normal respiratory effort GI GI Narrative: Obese, nondistended, soft, persistent tenderness palpation of the right upper quadrant Assessment & Plan Assessment/Plan (1) Acute calculous cholecystitis: PLAN: Patient hospital day 2 for diagnosis of cholecystitis. Unfortunately this morning's labs show further elevation of her bilirubin as well as transaminitis and elevation of the alkaline phosphatase level. This is suggestive of a cholestatic pattern and possible stone obstruction. Patient has been made aware of this update and that this could translate into her requiring an ERCP. Her white count, fortunately, has responded to the antibiotic therapy. We are planning to proceed to the operating room early this afternoon. She denies any further questions related to the procedure. Charges/Coding Visit Charges Inpatient E&M: 05913 Subs Hosp L2
[2023-07-18] MEDS: Ibuprofen 600 MG Tablet PO (08:37)
[2023-07-18] MEDS: Potassium Chloride 10mEq/100mL 10 MEQ/100 ML IV.SOLN. 100 MEQ IV BOLUS ×2 (08:51→10:04)
[2023-07-18] MEDS: Lactated Ringers 1,000 ML 15 ML IV (11:49)
[2023-07-18] MEDS: Clindamycin 900 MG/50 ML BAG 75 MG IV (13:11)
--- NOTE | 2023-07-18 13:35 | RAD_ITS ---
HISTORY: LAPAROSCOPIC,CHOLECYSTECTOMY WITH IOC COMPARISON: July 17, 2023 abdominal ultrasound TECHNIQUE: 3 fluoroscopic series were saved without a radiologist present, with 29, 2, and 62 images. FINDINGS: Images demonstrate intraoperative cholangiogram. Total fluoroscopy time: 22 seconds Cumulative air kerma: 16 22 mGy RAD/Cholangiogram/ O R,Initial IMPRESSION: Fluoroscopic assistance for intraoperative cholangiogram. Please see operative report for additional information. Electronically Signed: Gasper Washington MD at 3:12 EST ,
[2023-07-18] MEDS: Bupivacaine Mpf 0.5% 30 ML VIAL (16:05)
--- NOTE | 2023-07-18 16:22 | OP.PCM_ITS ---
Report of Operation Date of Procedure: 07/18/23 Pre-Operative Diagnosis: 1. Acute cholecystitis 2. Hyperbilirubinemia Post-Operative Diagnosis: 1. Acute on chronic cholecystitis 2. Hyperbilirubinemia without evidence of choledocholithiasis per cholangiogram Surgery/Procedure Performed:: Laparoscopic cholecystectomy with intraoperative cholangiogram Surgeon: Chandana Vaughn neurological physiotherapist: Verónica Garcia Type of Anesthesia: General/Supplemental Anesthesiologist: Keith Ortiz Specimen's removed: Gallbladder Drains: 15 Indian round García Estimated Blood Loss (mL): 100 Description of Procedure: After proper identification in the preoperative holding area the patient was bro ught to the operating room where [he/she] was positioned supine on the operating room table. Preoperatively [DVT prophylaxis vs] [SCDs were placed] and antibiotics were administered. General anesthesia was then induced. Patient's abdomen was prepped and draped in usual sterile fashion. A formal timeout was conducted to confirm both patient and the procedure. Procedure was begun with a supraumbilical incision which was extended deeply down to the level of the fascia. The fascia was elevated and incised, as well as the peritoneum. A finger sweep was performed to ensure there were no underlying adhesions and a 12 mm balloon trocar was inserted. Pneumoperitoneum was established at 15 mmHg. Three additional trocars (all 5 mm) were placed in the epigastrium and in the right upper quadrant. Inspection of the peritoneum revealed no inadvertent injury to the viscera below. The gallbladder was visualized with [degree of inflammation]. The gallbladder fundus was then grasped and elevated cephalad. Then, using careful dissection the peritoneum was opened and the structures of the hepatocystic triangle were delineated. Once the critical view of safety was obtained, the cystic duct was singly clipped and partially divided with a ductotomy. The proximal duct was milked of any debris until there was [backflow of bile]. A cholangiocatheter was fed into the proximal segment of the cystic duct and clipped into place. Using an Branch Hines clamp, a cholangiocatheter was fed into the proximal segment of the cystic duct and clamped into place. Under fluoroscopy a cholangiogram was then obtained showing a [length] cystic duct flowing into a common bile duct with unobstructed antegrade flow of contrast into the duodenum [vs other findings]. There was also retrograde flow through the common hepatic duct into the right and left hepatic ducts. Satisfied with this result, the cholangiocatheter was withdrawn and the proximal cystic duct was sealed with clips and the cystic duct was completely transected. The same process was used for the cystic artery. The gallbladder was then removed from the gallbladder fossa with the use of electrocautery. Selective electrocautery was used to obtain hemostasis in the gallbladder fossa. The gallbladder was placed in an Endo Catch bag and removed from the peritoneum. Morison's pouch was irrigated and the effluent was suctioned free of the peritoneum. Hemostasis was again confirmed. Pneumoperitoneum was evacuated and the fascia of the 12 mm port sites was closed with #1Vicryl in a [id number] fashion. A total of [] mL of anesthetic was injected at the port sites for postoperative pain control. The skin of each port site was then closed in subcuticular fashion using 4-0 Monocryl. Steri-Strips and bandages were applied as dressings. Patient tolerated the procedure well without any apparent complications. On emergence from their anesthetic the patient was taken to PACU for ongoing recovery. Decompression needle Takedown of gallbladder Placement 12 mm subxiphoid port Ybrd clamp for cholangiograms x 2 due to extravasation Triply clipped cystic duct with Hem-o-ely clips Triply clipped cystic artery with Hem-o-ely clips Placement of 15 Indian round García drain and Morison's pouch and subhepatic space Bleeding from superior epigastric artery suture closure of subxiphoid port site Extension of supraumbilical port site cephalad and caudad to the initial closure via Wilfred Carney suture passer and PDS, however, this failed due to inability to slide the PDS and suture fracture. Thus the opening was closed in an open fashion using 0 Vicryl. Additional local instillation
--- NOTE | 2023-07-18 16:22 | PCM.OPRPT ---
Report of Operation Date of Procedure: 07/18/23 Pre-Operative Diagnosis: 1. Acute cholecystitis 2. Hyperbilirubinemia Post-Operative Diagnosis: 1. Acute on chronic cholecystitis 2. Hyperbilirubinemia without evidence of choledocholithiasis per cholangiogram Surgery/Procedure Performed:: Laparoscopic cholecystectomy with intraoperative cholangiogram Surgeon: Chandana Vaughn network developer: Verónica Garcia Type of Anesthesia: General/Supplemental Anesthesiologist: Keith Ortiz Specimen's removed: Gallbladder Drains: 15 Luxem[place] round García Estimated Blood Loss (mL): 100 Description of Procedure: After proper identification in the preoperative holding area the patient was brought to the operating room where she was positioned supine on the operating room table. Preoperatively SCDs were placed and antibiotics were administered. General anesthesia was then induced. Patient's abdomen was prepped and draped in usual sterile fashion. A formal timeout was conducted to confirm both patient and the procedure. Procedure was begun with a supraumbilical incision which was extended deeply down to the level of the fascia. The fascia was elevated and incised, as well as the peritoneum. A finger sweep was performed to ensure there were no underlying adhesions and a 12 mm balloon trocar was inserted. Pneumoperitoneum was established at 15 mmHg. Three additional trocars (all 5 mm) were placed in the epigastrium and in the right upper quadrant. (Later in the case of patient's epigastric port site was upsized to a 12 mm trocar). Inspection of the peritoneum revealed no inadvertent injury to the viscera below. The gallbladder was visualized with severe inflammation and was unable to be grasped given its distention. The decompression needle was placed on the laparoscopic suction liver trimmer device and bile was aspirated until the gallbladder could then be grasped. The gallbladder fundus was then grasped and elevated cephalad. There was a very thick rind on the gallbladder and a open the peritoneum with the use of hook cautery. Taking down this rind resulted in some diffuse oozing that made visualization initially difficult. It appeared that the gallbladder had folded upon itself in the region of the gallbladder neck, but it was exceptionally difficult to delineate anatomy. Therefore, I called my partner to the operating room for their opinion of the situation and they recommended proceeding with a cholangiogram via bulging section of what appeared to be the gallbladder neck. This was accomplished using a Byrd clamp and catheter. Initially, there was extravasation we tried to obtain the cholangiogram. Laparoscopic visualization was reestablished and the catheter was reinserted. This time under fluoroscopy a cholangiogram was obtained showing a normal length cystic duct flowing into a mildly dilated common bile duct with unobstructed antegrade flow of contrast into the duodenum. There was also retrograde flow through the common hepatic duct into the right and left hepatic ducts. Satisfied with this result, the cholangiocatheter was withdrawn and the proximal cystic duct was sealed with Hem-o-ely clips after the epigastric port site was upsized to a 12 mm diameter. Then the cystic duct was completely transected. This division facilitated visualization of the cystic artery and the same process was used for the cystic artery. The gallbladder was then removed from the gallbladder fossa with the use of electrocautery. This proved to be very tedious given the thick rind posteriorly as well and the challenge in finding the gallbladder/liver interface. Still with constant traction we are able to do this successfully and selective electrocautery was used to obtain hemostasis in the gallbladder fossa. The gallbladder was placed in an Endo Catch bag. During gallbladder traction the friability of the wall and resulted in inadvertent rent in the anterior wall of the gallbladder and some local spillage of bile, thus Morison's pouch was irrigated and the effluent was suctioned free of the peritoneum. 2 full bags of irrigation were employed. Wanting to reclaim this irrigation more fully I elected to place a 15 Luxem[place] round García drain in Morison's pouch and along the liver edge. This drain exited our right lateralmost port and was secured at the skin with a 2-0 nylon stitch. Hemostasis was again confirmed. Given the thickness of the patient's abdominal wall I chose to close the subxiphoid port site under laparoscopic visualization with a Wilfred Carney suture passer and a #1 PDS. Unfortunately, my first pass of the needle resulted in hemorrhage from the right superior epigastric artery. I quickly performed a [id number]-kh-[id number] closure of this port site and then placed upward traction on the stitch for a period of 2 minutes. This resulted in hemostasis at this port site and the port was replaced. The supraumbilical port site was enlarged both at the skin and at the fascia to accommodate the larger gallbladder specimen in the Endo Catch bag. Then both the specimen and the pneumoperitoneum was evacuated. Pneumoperitoneum was reestablished and I performed another closure of the supraumbilical port site with #1 PDS using a Wilfred Carney suture passer. However, when pneumoperitoneum was evacuated for a final time I was unable to get the newly placed stitch to slide and this resulted in a suture fracture. Thus the port was closed via an open fashion using 0 Vicryl in a [id number]-fn-czanw technique. Additional local anesthetic was instilled A total of 40 mL of anesthetic was injected at the port sites for postoperative pain control. The skin of each port site was then closed in subcuticular fashion using 4-0 Monocryl. Steri-Strips and bandages were applied as dressings. Patient tolerated the procedure well without any apparent complications. On emergence from their anesthetic the patient was taken to PACU for ongoing recovery. Grafts/Implants Used: None Complications None Admit VTE Documentation VTE Mechan Device Prophylaxis: SCD's Procedures Digestive 40xxx-49xxx: 04158 Laparo cholecystectomy/graph
--- NOTE | 2023-07-18 17:32 | DCINST_ITS ---
Discharge Instructions Diet Discharge Diet: No restrictions Activity Discharge Activity: May Not Drive (No driving while using narcotic pain medication) and May Shower (Postoperative day 2) May shower in (days): 2 Ice area for (Minutes): 20 Lifting Restrictions: No lifting greater than 15 pounds for 2 weeks after surgery Dressing / Incision Call your doctor if your incision/area has: Continuous Slow Oozing, Increased Pain/ Swelling, Increased Redness, Foul Smelling Discharge and Swelling at the incision site Call your doctor if you observe: Fever of 101 or Higher Remove Dressing in: 2 days (Please leave Steri-Strips intact until they fall off spontaneously or are taken off at your follow-up visit) Cleanse incision/area with: Soap & Water Additional Dressing/Incision Instructions:: Please keep drain site covered for 48 hours then uncovered and begin showering Follow Up Care Please Follow Up With: Chandana Vaughn MD When: 7-10days postop Test Results: Test results from this visit will be discussed in further detail at your follow- up appointment, if applicable. Discharge Plan Admission Admit Date/Time: 07/18/23 15:16 Primary Reason for Your Visit: Acute cholecystitis Attending Provider: Chandana Vaughn Primary Care Provider: Care PhysicianGunjan Primary Discharge Orders/Prescriptions Prescriptions: New oxycodone 5 mg Tablet 5 mg PO Q4H PRN PRN (Reason: Pain Score 4-10) 3 Days Qty: 14 0RF No Action multivitamin [Daily Multi-Vitamin] Tablet 1 tab PO DAILY cholecalciferol (vitamin D3) 125 mcg (5,000 unit) capsule 125 mcg PO DAILY levothyroxine 150 mcg tablet 150 mcg PO [id number] Rx Instructions: TAKE 1 TAB EVERY DAY EXCEPT FRIDAY Referrals / Follow Up: Care Physician,Gunjan Primary [Primary Care Provider] - Disposition Disposition (needs filled in before D/C Order can be placed): Home, Self Care
--- NOTE | 2023-07-18 17:40 | NURSING ---
This Rn agrees with nursing home manager charting. Esther Saini MSN, RN
[2023-07-19 02:00] VITALS: BP 152/79; PULSE 86; RESP 16; TEMP 36.8; O2SAT 96
[2023-07-19] MEDS: oxyCODONE 5 MG Tablet PO ×3 (02:07→10:40)
[2023-07-19] MEDS: Acetaminophen 325 MG Tablet 650 MG PO (02:30)
[2023-07-19 03:36] VITALS: BMI 52.7
[2023-07-19 06:33] LABS: Absolute Lymphocyte Count 0.51 X10^3/uL (0.83-4.51); Absolute Neutrophil Count 13.4 X10^3/uL (2.0-7.7); Basophil# 0.01 X10^3/uL; Basophil% 0.1 % (0-1); Hematocrit 34.2 % (37-47); Hemoglobin 11.2 g/dL (12.0-15.0); Lymphocyte # 0.51 X10^3/ul (0.83-4.51); Lymphocyte % 3.4 % (19-41); Mean Corp Hgb Conc 32.7 g/dL (32-36); Mean Corpuscular Hgb 31.7 pg (27.0-32.0); Mean Corpuscular Volume 96.9 fL (81-99); Mean Platelet Vol. 10.9 fl (6.2-12.0); Monocyte# 0.89 X10^3/uL; NRBC Flagged by Analyzer 0 % (0-5); Neutrophil # 13.38 X10^3/uL (2.7-7.7); Neutrophil % 90.1 % (47-70); POSITIVE DIFFERENTIAL YES; Platelet Count 221 K/mm3 (150-450); RBC Distribution Width CV 13.1 % (11.6-14.6); RBC Distribution Width SD 46.6 fl (35.1-43.9); Red Blood Count 3.53 M/mm3 (4.2-5.4); White Blood Count 14.9 K/mm3 (4.4-11.0)
[2023-07-19 07:04] LABS: ALB/GLOB Ratio 0.7 RATIO (0.9-2.4); AST(SGOT) 87 U/L (15-37); Alanine Aminotransfer ALT/SGPT 149 U/L (13-56); Albumin, Serum 2.7 g/dL (3.2-5.0); Alkaline Phosphatase 198 U/L (45-117); Anion Gap 6 (5-15); BUN 8 mg/dL (7-18); BUN/Creat Ratio 12.8 RATIO (10-20); Calcium,Total 8.3 mg/dL (8.5-10.1); Chloride 107 mmol/L (98-107); Creatinine, Serum 0.62 mg/dL (0.55-1.02); EST Glomerular Filtration Rate 109 mL/min (>60); Est Glom Filt Rate - Afr Amer 132 mL/min (>60); Estimated Creatinine Clearance 146.88 ml/min; Globulin 3.9 g/dL (2.2-4.2); Glucose 110 mg/dL (74-106); Potassium 3.5 mmol/L (3.5-5.1); Protein, Total 6.6 g/dL (6.4-8.2); Sodium Level 139 mmol/L (136-145)
--- NOTE | 2023-07-19 07:29 | PCM.PN.SRG ---
Subjective Subjective ELDON serosanguineous, patient is pain controlled with p.o. pain meds complains of more pain towards the right upper quadrant. Tolerating clears Objective Data Objective Data Vital Signs: Vital Signs Temp Pulse Resp BP Pulse Ox O2 Del Method O2 Flow Rate 98.3 F 86 16 152/79 H 96 Room Air 4 07/19/23 02:00 07/19/23 02:00 07/19/23 02:00 07/19/23 02:00 07/19/23 02:00 07/19/23 02:00 07/18/23 18:00 Oxygen Flow Rate (L/min) 4 Oxygen Delivery Method Room Air Weight: 286 lb 9.615 oz Body Mass Index (BMI) 52.7 Intake & Output: Intake and Output for Last 24 Hours 07/17/23 07/18/23 07/19/23 23:59 23:59 23:59 Intake Total 843.33 / 843.33 3480.33 / 3880.33 400 / 400 Output Total 80 / 80 Balance 843.33 / 843.33 3400.33 / 3800.33 400 / 400 Lab / Micro Data 07/19/23 05:46 07/19/23 05:46 Labs: Laboratory Results - last 24 hr 07/19/23 05:46: WBC 14.9 H, RBC 3.53 L, Hgb 11.2 L, Hct 34.2 L, MCV 96.9, MCH 31.7, MCHC 32.7, RDW Std Deviation 46.6 H, RDW Coeff of Rula 13.1, Plt Count 221, MPV 10.9, Immature Gran % (Auto) 0.400, Neut % (Auto) 90.1 H, Lymph % (Auto) 3.4 L, Talbot % (Auto) 6.0, Eos % (Auto) 0.0, Baso % (Auto) 0.1, Absolute Neuts (auto) 13.4 H, Absolute Lymphs (auto) 0.51 L, Nucleated RBC % 0, Sodium 139, Potassium 3.5, Chloride 107, Carbon Dioxide 26.0, Anion Gap 6, BUN 8, Creatinine 0.62, Estim Creat Clear Calc 146.88, Est GFR (MDRD) Af Amer 132, Est GFR (MDRD) Non-Af 109, BUN/Creatinine Ratio 12.8, Glucose 110 H, Calcium 8.3 L, Total Bilirubin 1.80 H, AST 87 H, ALT 149 H, Alkaline Phosphatase 198 H, Total Protein 6.6, Albumin 2.7 L, Globulin 3.9, Albumin/Globulin Ratio 0.7 L Radiography Diagnostic Testing: Radiology Impression Cholangiogram 07/18/23 13:35 IMPRESSION: Fluoroscopic assistance for intraoperative cholangiogram. Please see operative report for additional information. Electronically Signed: Gasper Washington MD at 3:12 EST , Physical Exam Resp normal respiratory effort Cardio regular rate GI GI Narrative: Abdomen: Soft, nondistended, tender near incision's dressed clean dry and intact, no peritoneal signs, ELDON serosanguineous Assessment & Plan Assessment/Plan (1) Status post laparoscopic cholecystectomy: PLAN: Plan Patient tolerating p.o. ELDON serosanguineous removed at bedside. if Patient continues to do well will DC home. LFTs are coming down overall. Patient's white blood cells 14.9 likely due to recent surgery. Nancy Meade M.D. Pager: [phone] [facility] [address] [place] [address], [address] [place] [address] Office: [phone]
--- NOTE | 2023-07-19 07:51 | DS.PCM_ITS ---
Providers Date of Admission: 07/18/23 Primary Care Physician: No Primary Care Phys Reason For Visit: ACUTE CHOLECYSTITIS WITH CALCULUS Diagnosis Discharge Diagnosis (1) Status post laparoscopic cholecystectomy: Status: Acute Code(s): Z90.49 - Acquired absence of other specified parts of digestive tract Plan Patient tolerating p.o. ELDON serosanguineous removed at bedside. if Patient continues to do well will DC home. LFTs are coming down overall. Patient's white blood cells 14.9 likely due to recent surgery. Nancy Meade M.D. Pager: [phone] [facility] [address] [place] [address], [facility], [address] [place] [address] Office: [phone] Medications at Discharge Home Medications cholecalciferol (vitamin D3) 125 mcg (5,000 unit) capsule 125 mcg PO DAILY 08/05/22 multivitamin (Daily Multi-Vitamin tablet) 1 tab PO DAILY 08/05/22 levothyroxine 150 mcg tablet 150 mcg PO MOTUWETHFRSA 07/17/23 oxycodone 5 mg tablet 5 mg PO Q4H PRN PRN Pain Score 4-10 3 days #14 tabs 07/18/23 Hospital Course Operations cholecystecomy Summary of Care Provided Minutes Spent on Discharge: 15 Hospital Course: Patient initially came to the ER due to right upper quadrant pain. Patient was found to have acute cholecystitis. Patient underwent laparoscopic cholecystectomy. Prior to laparoscopic cholecystectomy patient's total bili went up to 4 however during the case cholangiogram showed no filling defects in the common bile duct and likely the increased LFTs just due to the inflamed gallbladder. Patient also had a ELDON placed in the gallbladder fossa during the surgery. Next morning ELDON was serosanguineous was removed at bedside. Patient was able to tolerate p.o. and pain was controlled and ambulating. Weight / BMI Weight Weight: 286 lb 9.615 oz Body Mass Index (BMI) 52.7 ABG / Lab / Microbiology Data 07/19/23 05:46 07/19/23 05:46 Laboratory: Laboratory Results - last 24 hr 07/19/23 05:46: WBC 14.9 H, RBC 3.53 L, Hgb 11.2 L, Hct 34.2 L, MCV 96.9, MCH 31.7, MCHC 32.7, RDW Std Deviation 46.6 H, RDW Coeff of Rula 13.1, Plt Count 221, MPV 10.9, Immature Gran % (Auto) 0.400, Neut % (Auto) 90.1 H, Lymph % (Auto) 3.4 L, O'Brien % (Auto) 6.0, Eos % (Auto) 0.0, Baso % (Auto) 0.1, Absolute Neuts (auto) 13.4 H, Absolute Lymphs (auto) 0.51 L, Nucleated RBC % 0, Sodium 139, Potassium 3.5, Chloride 107, Carbon Dioxide 26.0, Anion Gap 6, BUN 8, Creatinine 0.62, Estim Creat Clear Calc 146.88, Est GFR (MDRD) Af Amer 132, Est GFR (MDRD) Non-Af 109, BUN/Creatinine Ratio 12.8, Glucose 110 H, Calcium 8.3 L, Total Bilirubin 1.80 H, AST 87 H, ALT 149 H, Alkaline Phosphatase 198 H, Total Protein 6.6, Albumin 2.7 L, Globulin 3.9, Albumin/Globulin Ratio 0.7 L Radiography Diagnostic Testing: Radiology Impression Cholangiogram 07/18/23 13:35 IMPRESSION: Fluoroscopic assistance for intraoperative cholangiogram. Please see operative report for additional information. Electronically Signed: Gasper Washington MD at 3:12 EST Reading Location ID and State: [address] [place] [address] Tel , Service support , D/C Instructions Discharge Diet: No restrictions May shower in (days): 2 Ice area for (Minutes): 20 Call your doctor if your incision/area has: Continuous Slow Oozing, Increased Pain/ Swelling, Increased Redness, Foul Smelling Discharge and Swelling at the incision site Call your doctor if you observe: Fever of 101 or Higher Cleanse incision/area with: Soap & Water Additional Dressing/Incision Instructions: Please keep drain site covered for 48 hours then uncovered and begin showering Please Follow Up With: Chandana Vaughn MD When: 7-10days postop Meaningful Use Info Meaningful Use Diagnoses (Choose all that apply): None applicable Discharge Plan Admission Admit Date/Time: 07/18/23 15:16 Primary Reason for Your Visit: Acute cholecystitis Attending Provider: Chandana Vaughn Primary Care Provider: Care Physician,Gunjan Primary Discharge Orders/Prescriptions Prescriptions: New oxycodone 5 mg Tablet 5 mg PO Q4H PRN PRN (Reason: Pain Score 4-10) 3 Days Qty: 14 0RF No Action multivitamin [Daily Multi-Vitamin] Tablet 1 tab PO DAILY cholecalciferol (vitamin D3) 125 mcg (5,000 unit) capsule 125 mcg PO DAILY levothyroxine 150 mcg tablet 150 mcg PO MOTUWETHFRSA Rx Instructions: TAKE 1 TAB EVERY DAY EXCEPT FRIDAY Referrals / Follow Up: Care Physician,No Primary [Primary Care Provider] - Disposition Disposition (needs filled in before D/C Order can be placed): Home, Self Care
[2023-07-19] MEDS: Ketorolac 15 MG/ML Vial IV (07:53)
[2023-07-19 09:12] VITALS: BP 143/81; PULSE 88; RESP 16; TEMP 37.1; O2SAT 92
--- NOTE | 2023-07-19 09:34 | CASEMGMT ---
RN CM Assessment: Face to Face with pt for initial transition planning/care coordination assessment. RN CM introduced self and role at [facility], pt voices understanding and consents to assessment. Pt is A&O x4 and sitting up in chair answers all questions appropriately at this time. Care providers, pharmacy, and demographics verified/updated. Admitting Dx: Acute Cholecystitis PCP: None- [facility] Provider Directory provided as pt works in [place] Specialists:None Preferred Pharmacy: [facility] Insurance: [employer] Prescription Benefit: yes LNOK: Mom Bita Cardoza [phone] Living Arrangements: Pt lives at home with spouse and 2 children. Pt is independent at baseline. Employed. Transportation: Pt drives self and denies concerns with transportation. DME: None HHC/SNF: None Pt states no concerns with going home at time of dc. Pt states no further concerns/needs. CM to follow. Advised pt to ask CM if any further question/concerns/needs arise, voices understanding. Pt Goal: Home Plan: Home with no skilled needs Teresa Jacobs MSN, RN, CCM
== END 2023-07-19 11:27 | disposition home or self-care (01) | DRG 418 ==
LOC: ED 10:26 → MS3 11:14
PROVIDERS: Anesthesiology; Admitting Provider Physician Assistant; Emergency Provider Student in an Organized Health Care Education/Training Program; Visit Provider Surgery
PROC: 0FT44ZZ Resection of Gallbladder, Percutaneous Endoscopic Approach (ICD-10-PCS; CPT 47610; principal; 2023-07-18 12:25)
DX: K80.12 Calculus of gallbladder with acute and chronic cholecystitis without obstruction (principal); Z68.43 Body mass index [BMI] 50.0-59.9, adult; E66.01 Morbid (severe) obesity due to excess calories; E89.0 Postprocedural hypothyroidism; Z79.890 Hormone replacement therapy
CPT/HCPCS: 36415; 74300; 76000; 76705; 80048; 80053; 80076; 81025; 83690; 84443; 84703; 85025; 88304; 93005; 94668; 99252; 99282; J7050; J7120; A4216; G0463; J2405

== ENCOUNTER → 2023-07-30 | Outpatient (CLI) | payer OTHER, SELFPAY ==
[2023-07-30 11:30] LABS: T4 Free Direct 1.47 ng/dL (0.76-1.46); Thyroid Stim Hormone (TSH) 1.33 uIU/mL (0.358-3.74)
[2023-07-31 16:09] LABS: Anti-Thyroglobulin AB < 1.0 IU/mL (0.0-0.9); Thyroglobulin, Serum Qt. 0.2 ng/mL (1.5-38.5)
== END | disposition home or self-care (01) ==
LOC: PAVLAB 09:56
PROVIDERS: Referring Provider Internal Medicine Endocrinology, Diabetes & Metabolism; Visit Provider Internal Medicine Endocrinology, Diabetes & Metabolism
DX: E89.0 Postprocedural hypothyroidism (principal); C73 Malignant neoplasm of thyroid gland
CPT/HCPCS: 36415; 84432; 84439; 84443; 86800

== ENCOUNTER → 2023-08-25 | Outpatient (CLI) | payer OTHER, SELFPAY ==
[2023-08-25 14:09] LABS: ALB/GLOB Ratio 0.9 RATIO (0.9-2.4); AST(SGOT) 20 U/L (15-37); Alanine Aminotransfer ALT/SGPT 22 U/L (13-56); Albumin, Serum 3.6 g/dL (3.2-5.0); Alkaline Phosphatase 78 U/L (45-117); Anion Gap 5 (5-15); BUN 10 mg/dL (7-18); BUN/Creat Ratio 12.4 RATIO (10-20); Calcium,Total 8.7 mg/dL (8.5-10.1); Chloride 107 mmol/L (98-107); EST Glomerular Filtration Rate 81 mL/min (>60); Est Glom Filt Rate - Afr Amer 99 mL/min (>60); Globulin 3.8 g/dL (2.2-4.2); Glucose 98 mg/dL (74-106); Potassium 3.6 mmol/L (3.5-5.1); Protein, Total 7.4 g/dL (6.4-8.2); Sodium Level 140 mmol/L (136-145)
== END | disposition home or self-care (01) ==
LOC: PAVLAB 13:43
PROVIDERS: Referring Provider Internal Medicine Endocrinology, Diabetes & Metabolism; Visit Provider Internal Medicine Endocrinology, Diabetes & Metabolism
DX: R74.8 Abnormal levels of other serum enzymes (principal); C73 Malignant neoplasm of thyroid gland; E89.0 Postprocedural hypothyroidism
CPT/HCPCS: 36415; 80053

== ENCOUNTER → 2024-07-28 | Outpatient (CLI) | payer OTHER, SELFPAY ==
[2024-07-28 11:19] LABS: ALB/GLOB Ratio 1.3 RATIO (0.9-2.4); AST(SGOT) 21 U/L (<=31); Alanine Aminotransfer ALT/SGPT 20 U/L (<=34); Alkaline Phosphatase 84 U/L (35-104); Anion Gap 11 (5-15); BUN 8 mg/dL (4-19); BUN/Creat Ratio 11.9 RATIO (10-20); Carbon Dioxide 23.8 mmol/L (21.0-32.0); Chloride 103 mmol/L (98-108); EST Glomerular Filtration Rate 107 (>60); Globulin 3.1 g/dL (2.2-4.2); Glucose 83 mg/dL (70-99); Protein, Total 7.1 g/dL (5.9-8.4); Sodium Level 138 mmol/L (133-145); Total Bilirubin 0.71 mg/dL (0.00-1.30)
[2024-07-28 19:43] LABS: Xtra Tube EP Lab EXTRA TUBE
[2024-07-29 16:08] LABS: Anti-Thyroglobulin AB < 1.0 IU/mL (0.0-0.9); Thyroglobulin, Serum Qt. 0.6 ng/mL (1.5-38.5)
== END | disposition home or self-care (01) ==
LOC: PAVLAB 10:08
PROVIDERS: Referring Provider Internal Medicine Endocrinology, Diabetes & Metabolism; Visit Provider Internal Medicine Endocrinology, Diabetes & Metabolism
DX: C73 Malignant neoplasm of thyroid gland (principal); E89.0 Postprocedural hypothyroidism
CPT/HCPCS: 36415; 80053; 84432; 84439; 84443; 86800